=== PATIENT | female | born 1935 | race Caucasian/White ===

== ENCOUNTER 2017-05-21 06:12 | Day surgery (SDC) | payer MEDICARE ==
[2017-05-19 13:46] VITALS: BMI 29.2
--- NOTE | 2017-05-20 19:46 | P.GSHP ---
History of Present Illness H&P Date: 05/21/17 CHIEF COMPLAINT: Colon screen HISTORY OF PRESENT ILLNESS: The patient is a 81-year-old female who presents for colon screen. She has history of polyps. Lower endoscopy was offered for further evaluation and management. PAST MEDICAL HISTORY: Please see list. PAST SURGICAL HISTORY: Please see list. MEDICATIONS: Please see list. ALLERGIES: Please see list. SOCIAL HISTORY: No illicit drug use FAMILY HISTORY: No reports of Crohn disease or ulcerative colitis. REVIEW OF ORGAN SYSTEMS: CONSTITUTIONAL: No reports of fevers or chills. PHYSICAL EXAM: VITAL SIGNS: Stable GENERAL: Well-developed pleasant in no acute distress. HEENT: No scleral icterus. Extraocular movements grossly intact. Moist buccal mucosa. NECK: Supple without lymphadenopathy. CHEST: Unlabored respirations. Equal bilateral excursions. CARDIOVASCULAR: Regular rate and rhythm. Distal 2+ pulses. ABDOMEN: Soft, nontender, nondistended. MUSCULOSKELETAL: No clubbing, cyanosis, or edema. ASSESSMENT: 1. Colon screen. PLAN: 1. Recommend proceeding with a lower endoscopy Past Medical History Past Medical History: CVA/TIA, Dementia, GERD/Reflux, Hyperlipidemia, Hypertension, Memory Impairment Additional Past Medical History / Comment(s): Alzheimer's, large hiatal hernia, splenic aortic aneurysm History of Any Multi-Drug Resistant Organisms: None Reported Past Surgical History: Hernia Repair, Orthopedic Surgery Additional Past Surgical History / Comment(s): ganglion cysts removed, fx. right wrist repair, splenectomy Past Anesthesia/Blood Transfusion Reactions: Previous Problems w/ Anesthesia Additional Past Anesthesia/Blood Transfusion Reaction / Comment(s): difficulty waking up Smoking Status: Never smoker - Past Family History Mother Family Medical History: No Reported History Medications and Allergies Home Medications Medication Instructions Recorded Confirmed Type Aspirin 81 mg PO DAILY 08/17/14 05/19/17 History Atorvastatin [Lipitor] 40 mg PO HS 08/17/14 05/19/17 History Donepezil [Aricept] 5 mg PO HS 08/17/14 05/19/17 History Hydrochlorothiazide [Hydrodiuril] 25 mg PO DAILY 08/17/14 05/19/17 History Omeprazole [PriLOSEC] 20 mg PO AC-BRKFST 08/17/14 05/19/17 History Potassium Chloride [Klor-Con 10] 40 meq PO DAILY 08/17/14 05/19/17 History Melatonin 3 mg PO HS 09/11/14 05/19/17 History HYDROcodone/APAP 7.5-325MG [Roulette 1 each PO Q4H PRN #60 tab 09/19/14 05/19/17 Rx 7.5] Cholecalciferol [Vitamin D3] 1,000 unit PO DAILY 05/19/17 05/19/17 History Allergies Allergy/AdvReac Type Severity Reaction Status Date / Time No Known Allergies Allergy Verified 05/19/17 13:23
[~2017-05-21 06:12] MED LIST: LACTATED RINGERS 1,000 ML IV SCH; LIDOCAINE 1% 20 ML VIAL (10MG/ML) FOR IV START INTRADERMA PRN
[2017-05-21 06:47] VITALS: TEMP 98.3
[2017-05-21] MEDS ORDERED: LIDOCAINE 1% INJ 10MG/ML (20 ML MDV) ONE (07:10)
[2017-05-21] MEDS ORDERED: PROPOFOL 10 MG/ML 20 ML VIAL IV ONE (07:10)
--- NOTE | 2017-05-21 07:14 | P.HPADDEND ---
H&P Addendum H&P Addendum Date: 05/21/17 Patient reports rectal bleeding of recent.
--- NOTE | 2017-05-21 07:29 | P.PCN ---
Date of Procedure: 05/21/17 Description of Procedure: PREOPERATIVE DIAGNOSIS: Personal history of colon polyps. Rectal bleeding. POSTOPERATIVE DIAGNOSIS: Personal history of colon polyps. Rectal bleeding. External hemorrhoids. OPERATION: Colonoscopy to the sigmoid colon. SURGEON: Andie Pritchard MD. ANESTHESIA: MAC. INDICATIONS: The patient is a 81-year-old female who presents with rectal bleeding. Her last colonoscopy was more than 5 years ago. Benefits and risks were described and informed consent was obtained. DESCRIPTION OF PROCEDURE: The patient had undergone Gatorade, MiraLAX and Dulcolax prep. She had been brought into the operating room and laid in the left lateral decubitus position. After adequate intravenous sedation, the rectum was examined with 2% lidocaine jelly. External hemorrhoids were encountered. The rectal tone was loose. No lesions were palpated in the rectal vault. An Olympus colonoscope was advanced along the rectum to a very tortuous sigmoid colon. The scope was then exchanged for another colonoscope. Despite multiple maneuvers, the sigmoid colon had severe tortuosity preventing further advancement of scope. The scope was passed to 30 cm from the anal verge. No evidence of polyps were identified. As the patient posed high risk for perforation with persistence of the procedure, the procedure was discontinued. The colon was desufflated. The patient had tolerated the procedure well. Withdrawal time was over 6 minutes. FINDINGS: Tortuous sigmoid colon with stricture preventing further advancement of the scope. External prolapsed hemorrhoids with recent inflammation. Scope advanced to sigmoid colon at 30 cm. No arteriovenous malformations. No adenomatous polyps. No focal colitis. RECOMMENDATIONS: Completion of colonoscopy evaluation with barium enema.
[2017-05-21] MEDS ORDERED: IV FLUID CONTINUATION 1,000 ML IV ONE (07:36)
[2017-05-21] MEDS ORDERED: LACTATED RINGERS 1,000 ML IV ONE (07:36)
[2017-05-21 08:27] VITALS: RESP 15
[2017-05-21 08:44] VITALS: BP 177/90; PULSE 80
--- NOTE | 2017-05-21 11:08 | FL ---
EXAMINATION TYPE: FL barium enema DATE OF EXAM: 05/21/2017 COMPARISON: CT abdomen pelvis dated 08/11/2014 HISTORY: Incomplete colonoscopy. Failed colonoscopy due to tortuous sigmoid colon. Pt hx rectal bleed ing, hemorrhoids and polyps. TECHNIQUE: A single contrast barium enema study is performed. 2 min 9 sec fluoro. 40 images saved. FINDINGS: Scalping Machine Operator view of the abdomen shows overall non-obstructive bowel gas pattern. 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 No evidence of any mass or polyp, obstructing or constricting lesion throughout the colon. Sigmoid an d descending colonic diverticulosis are seen. Appendix was filled and appeared normal. The terminal ileum was nonvisualized due to overlapping bow el despite multiple positions and paddle usage. IMPRESSION: 1. No evidence of obstructing mass. Sigmoid and descending colonic diverticulosis is incidentally not ed. 2. 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
== END 2017-05-21 09:05 | disposition home or self-care (01) ==
LOC: ORWHC2ENDO 06:12
PROVIDERS: ATTEND Surgery Plastic and Reconstructive Surgery
DX: K57.33 Diverticulitis of large intestine without perforation or abscess with bleeding (principal); K64.4 Residual hemorrhoidal skin tags; K21.9 Gastro-esophageal reflux disease without esophagitis; I10 Essential (primary) hypertension; G30.9 Alzheimer's disease, unspecified; F02.80 Dementia in other diseases classified elsewhere, unspecified severity, without behavioral disturbance, psychotic disturbance, mood disturbance, and anxiety; E78.5 Hyperlipidemia, unspecified; Z86.010 Personal history of colon polyps; Z86.73 Personal history of transient ischemic attack (TIA), and cerebral infarction without residual deficits; Z79.82 Long term (current) use of aspirin; Z79.891 Long term (current) use of opiate analgesic; Z79.899 Other long term (current) drug therapy; Z90.81 Acquired absence of spleen
CPT/HCPCS: 74270; 45330; J2001; J2704

== ENCOUNTER → 2017-07-02 | Outpatient (CLI) | payer MEDICARE ==
--- NOTE | 2017-07-02 14:13 | CT ---
EXAMINATION TYPE: CT angio abdomen pelvis DATE OF EXAM: 07/02/2017 HISTORY: Splenic aneurysm CT DLP: 346.5mGycm Automated Exposure Control for Dose Reduction was Utilized. CONTRAST: CT scan of the abdomen and pelvis is performed with IV Contrast, patient injected with 80 mL of Isovu e 370. COMPARISON: 08/11/2014 FINDINGS: LUNG BASES: No significant abnormality is appreciated. LIVER/GB: No significant abnormality is appreciated. PANCREAS: No significant abnormality is seen. SPLEEN: Splenectomy changes with apparent thrombosis of the splenic artery and dense atherosclerotic changes. There are 2 splenic artery aneurysms identified superior thrombosed the largest measuring 1. 7 cm. ADRENALS: No significant abnormality is seen. KIDNEYS: No hydronephrosis or nephrolithiasis. Along the lateral margin of the left kidney there is a indeterminate 7 mm left renal lesion. BOWEL: Large hiatal hernia noted. Diverticulosis of the colon seen. Atherosclerotic change of the vas culature. Aorta of normal caliber. Extensive vascular atherosclerotic change of the splenic artery.. LYMPH NODES: No greater than 1cm abdominal or pelvic lymph nodes are appreciated. OSSEOUS STRUCTURES: Hypertrophic and degenerative changes spine seen with a grade 1 anterolisthesis L 4 on L5. Disc bulging contributes to canal stenosis. Severe facet arthropathy.. OTHER: No significant additional abnormality is seen. IMPRESSION: 1. 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 2. Large hiatal hernia. 3. Indeterminate left renal lesion correlate with ultrasound.
== END | disposition home or self-care (01) ==
LOC: RADCTMAIN 11:16
PROVIDERS: ATTEND Surgery Vascular Surgery
DX: I72.8 Aneurysm of other specified arteries (principal); K44.9 Diaphragmatic hernia without obstruction or gangrene; N28.9 Disorder of kidney and ureter, unspecified; Z90.81 Acquired absence of spleen
CPT/HCPCS: 74174; 96360; 96361; Q9967

== ENCOUNTER → 2017-09-14 | Outpatient (CLI) | payer MEDICARE ==
--- NOTE | 2017-09-14 14:56 | US ---
EXAMINATION TYPE: US gallbladder DATE OF EXAM: 09/14/2017 COMPARISON: None CLINICAL HISTORY: 82-year-old female right upper quadrant pain, K81.9 Cholecystitis. TECHNIQUE: Multiple sonographic images of the right upper quadrant are obtained. FINDINGS: EXAM MEASUREMENTS: Liver Length: 13.0 cm Gallbladder Wall: 0.1 cm CBD: 0.5 cm Right Kidney: 9.8 X 4.5 X 4.2 cm Pancreas: Obscured by bowel gas Liver: There is very hypoechoic appearance to the liver. Some relatively echogenic areas measuring 3 cm and 2.5 cm are noted along the gallbladder fossa. Gallbladder: wnl Evidence for sonographic Cunningham's sign: No CBD: wnl Right Kidney: No hydronephrosis IMPRESSION: 1. Very hypoechoic appearance to the liver. Correlate for possible hepatitis. 2. A couple vague echogenic areas measuring up to 3 cm centrally in the liver could represent areas o f relatively normal parenchyma or fatty infiltration. 3 month follow-up recommended.
--- NOTE | 2017-09-14 15:55 | NM ---
EXAMINATION TYPE: NM hepatobiliary w EF DATE OF EXAM: 09/14/2017 COMPARISON: Ultrasound same day HISTORY: 82-year-old female with pain, evaluate for cholecystitis TECHNIQUE: After the intravenous administration of 5.1 mCi Tc 99m Mebrofenin hepatobiliary scintigrap hy is performed. Immediate images post injection. FINDINGS: There is satisfactory initial accumulation of tracer by the liver. The gallbladder is visualized wit hin 22 minutes. The small bowel activity is noted within 54 minutes. At one hour 8 ounces of oral e nsure plus is given to mimic CCK and gallbladder ejection fraction is calculated at 50 %, in the norm al range. Therefore there is no scintigraphic evidence of cystic or common bile duct obstruction to suggest acute cholecystitis or gallbladder dyskinesia. IMPRESSION: Exam is within normal limits.
== END | disposition home or self-care (01) ==
LOC: RADUSMAIN 12:17
PROVIDERS: ATTEND Surgery Plastic and Reconstructive Surgery
DX: R93.2 Abnormal findings on diagnostic imaging of liver and biliary tract (principal)
CPT/HCPCS: 76705; 78226; A9537

== ENCOUNTER 2017-10-02 11:51 | Day surgery (SDC) | payer MEDICARE ==
[2017-09-30 11:36] VITALS: BMI 30.1
--- NOTE | 2017-10-02 07:30 | P.GSHP ---
History of Present Illness H&P Date: 10/02/17 CHIEF COMPLAINT: GERD HISTORY OF PRESENT ILLNESS: The patient is a 82-year-old male who presents reports gastroesophageal reflux disease. Upper endoscopy was offered for further evaluation and management. PAST MEDICAL HISTORY: Please see list. PAST SURGICAL HISTORY: Please see list. MEDICATIONS: Please see list. ALLERGIES: Please see list. SOCIAL HISTORY: No illicit drug use FAMILY HISTORY: No reports of Crohn disease or ulcerative colitis. REVIEW OF ORGAN SYSTEMS: CONSTITUTIONAL: No reports of fevers or chills. GI: Denies any blood in stools or constipation. PHYSICAL EXAM: VITAL SIGNS: Stable GENERAL: Well-developed and pleasant in no acute distress. HEENT: No scleral icterus. Extraocular movements grossly intact. Moist buccal mucosa. NECK: Supple without lymphadenopathy. CHEST: Unlabored respirations. Equal bilateral excursions. CARDIOVASCULAR: Regular rate and rhythm. Distal 2+ pulses. ABDOMEN: Soft, nondistended. MUSCULOSKELETAL: No clubbing, cyanosis, or edema. ASSESSMENT: 1. Gastroesophageal reflux disease PLAN: 1. Recommend proceeding with an upper endoscopy Past Medical History Past Medical History: Dementia, GERD/Reflux, Hyperlipidemia, Hypertension, Memory Impairment Additional Past Medical History / Comment(s): Alzheimer's, large hiatal hernia, splenic aortic aneurysm, diverticulitis, frequent diarrhea History of Any Multi-Drug Resistant Organisms: None Reported Past Surgical History: Hernia Repair, Orthopedic Surgery Additional Past Surgical History / Comment(s): ganglion cysts removed, fx. right wrist repair, splenectomy Past Anesthesia/Blood Transfusion Reactions: Previous Problems w/ Anesthesia Additional Past Anesthesia/Blood Transfusion Reaction / Comment(s): difficulty waking up Smoking Status: Never smoker - Past Family History Mother Family Medical History: No Reported History Medications and Allergies Home Medications Medication Instructions Recorded Confirmed Type Aspirin 81 mg PO DAILY 08/17/14 09/30/17 History Atorvastatin [Lipitor] 40 mg PO HS 08/17/14 09/30/17 History Hydrochlorothiazide [Hydrodiuril] 25 mg PO DAILY 08/17/14 09/30/17 History Omeprazole [PriLOSEC] 20 mg PO AC-BRKFST 08/17/14 09/30/17 History Potassium Chloride [Klor-Con 10] 40 meq PO DAILY 08/17/14 09/30/17 History Cholecalciferol [Vitamin D3] 1,000 unit PO DAILY 05/19/17 09/30/17 History Mirtazapine [Remeron] 1 tab PO HS 07/02/17 09/30/17 History Donepezil [Aricept] 10 mg PO HS 09/30/17 09/30/17 History Loperamide [Imodium] 2 mg PO QID PRN 09/30/17 09/30/17 History Allergies Allergy/AdvReac Type Severity Reaction Status Date / Time No Known Allergies Allergy Verified 09/30/17 11:29
[~2017-10-02 11:51] MED LIST changes: -LIDOCAINE 1% 20 ML VIAL (10MG/ML) FOR IV START INTRADERMA PRN
[2017-10-02 12:24] VITALS: RESP 18; TEMP 98.3
[2017-10-02] MEDS ORDERED: LIDOCAINE 1% 20 ML VIAL (10MG/ML) FOR IV START INTRADERMA ONE (12:34)
[2017-10-02] MEDS ORDERED: PROPOFOL 10 MG/ML 20 ML VIAL IV ONE (13:13)
[2017-10-02] MEDS ORDERED: LIDOCAINE 1% INJ 10MG/ML (20 ML MDV) ONE (13:13)
--- NOTE | 2017-10-02 13:28 | P.PCN ---
Date of Procedure: 10/02/17 Description of Procedure: PREOPERATIVE DIAGNOSIS: Gastroesophageal reflux disease. POSTOPERATIVE DIAGNOSIS: Gastroesophageal reflux disease. Diaphragmatic hiatal hernia without obstruction. OPERATION: Esophagogastroduodenoscopy with biopsies along antrum. SURGEON: Andie Pritchard MD ANESTHESIA: MAC. INDICATIONS: The patient is a 82-year-old female who presents with a history of reflux disease. Benefits and risks of the procedure were described. Informed consent was obtained. DESCRIPTION: The patient was brought into the endoscopy suite and laid in the left lateral decubitus position. An Olympus gastroscope was passed along the posterior oropharynx down to the distal esophagus where the squamocolumnar junction was encountered at 32 cm from the incisors. The stomach was entered and no bile reflux was found. Additional findings are listed below. Biopsies with cold forceps were obtained of the antrum. The first through third portion of the duodenum was examined and unremarkable. Retroflexion of the scope confirmed Hill grade 4 lower esophageal valve. The squamocolumnar junction demonstrated early and acute LA grade A erosive esophagitis. The stomach was desufflated. The patient tolerated the procedure well. FINDINGS: Squamocolumnar junction 32 cm from the incisors. Diaphragmatic hiatus at 36 cm. Hiatal hernia 4 cm. Hill grade 4 lower esophageal valve. LA grade A erosive esophagitis. No active duodenitis. Mild gastritis RECOMMENDATIONS: Upper endoscopy as needed. Will benefit from antireflux surgical procedure Plan - Discharge Summary New Discharge Prescriptions: No Action Hydrochlorothiazide [Hydrodiuril] 25 mg PO DAILY Atorvastatin [Lipitor] 40 mg PO HS Aspirin 81 mg PO DAILY Omeprazole [PriLOSEC] 20 mg PO AC-BRKFST Potassium Chloride [Klor-Con 10] 40 meq PO DAILY Cholecalciferol [Vitamin D3] 1,000 unit PO DAILY Mirtazapine [Remeron] 1 tab PO HS Donepezil [Aricept] 10 mg PO HS Loperamide [Imodium] 2 mg PO QID PRN PRN Reason: Diarrhea Discharge Medication List Aspirin 81 mg PO DAILY 08/17/14 [History] Atorvastatin [Lipitor] 40 mg PO HS 08/17/14 [History] Hydrochlorothiazide [Hydrodiuril] 25 mg PO DAILY 08/17/14 [History] Omeprazole [PriLOSEC] 20 mg PO AC-BRKFST 08/17/14 [History] Potassium Chloride [Klor-Con 10] 40 meq PO DAILY 08/17/14 [History] Cholecalciferol [Vitamin D3] 1,000 unit PO DAILY 05/19/17 [History] Mirtazapine [Remeron] 1 tab PO HS 07/02/17 [History] Donepezil [Aricept] 10 mg PO HS 09/30/17 [History] Loperamide [Imodium] 2 mg PO QID PRN 09/30/17 [History]
[2017-10-02 13:49] VITALS: BP 161/92; PULSE 62
== END 2017-10-02 14:08 | disposition home or self-care (01) ==
LOC: ORWHC2ENDO 11:51
PROVIDERS: ATTEND Surgery Plastic and Reconstructive Surgery
DX: K29.50 Unspecified chronic gastritis without bleeding (principal); K22.10 Ulcer of esophagus without bleeding; K44.9 Diaphragmatic hernia without obstruction or gangrene; K21.9 Gastro-esophageal reflux disease without esophagitis; E78.5 Hyperlipidemia, unspecified; I10 Essential (primary) hypertension; G30.9 Alzheimer's disease, unspecified; F02.80 Dementia in other diseases classified elsewhere, unspecified severity, without behavioral disturbance, psychotic disturbance, mood disturbance, and anxiety; Z79.82 Long term (current) use of aspirin; Z79.899 Other long term (current) drug therapy
CPT/HCPCS: 88305; 43239; J2001; J2704

== ENCOUNTER → 2018-10-21 | Outpatient (CLI) | payer MEDICARE ==
--- NOTE | 2018-10-22 10:26 | ECHOF ---
Referral Reason:R01.1 Cardiac murmor,unspecified MEASUREMENTS -------- HEIGHT: 160.0 cm WEIGHT: 79.4 kg BP: 151/85 RVIDd: 2.8 cm (< 3.3) IVSd: 1.2 cm (0.6 - 1.1) LVIDd: 3.6 cm (3.9 - 5.3) LVPWd: 1.1 cm (0.6 - 1.1) IVSs: 1.6 cm LVIDs: 2.1 cm LVPWs: 1.4 cm LA Diam: 2.5 cm (2.7 - 3.8) LAESV Index (A-L): 33.70 ml/m Ao Diam: 3.5 cm (2.0 - 3.7) AV Cusp: 1.5 cm (1.5 - 2.6) MV EXCURSION: 11.540 mm (> 18.000) MV EF SLOPE: 37 mm/s (70 - 150) EPSS: 0.4 cm MV E Rome: 0.85 m/s MV DecT: 374 ms MV A [place]: 1.02 m/s MV E/A Ratio: 0.83 AV maxP.37 mmHg AV meanP.78 mmHg RAP: 5.00 mmHg RVSP: 19.97 mmHg FINDINGS -------- Sinus rhythm. This was a technically good study. The left ventricular size is normal. There is borderline concentric left ventricular hypertrophy. Overall left ventricular systolic function is normal with, an EF between 60 - 65 %. The right ventricle is normal in size. LA is midly dilated 29-33ml/m2. The right atrium is normal in size. Interatrial and interventricular septum intact. There is moderate aortic valve sclerosis. There is mild aortic stenosis present. Peak/mean gradie nt across the Aortic Valve is 36.37mmHg / 18.78mmHg. The mitral valve leaflets are mildly thickened. Mild mitral annular calcification present. There is trace to mild mitral regurgitation. Mild tricuspid regurgitation present. Right ventricular systolic pressure is normal at < 35 mmHg. Trace/mild (physiologic) pulmonic regurgitation. The aortic root size is normal. Normal inferior vena cava with normal inspiratory collapse consistent with estimated right atrial pre ssure of 5 mmHg. There is no pericardial effusion. CONCLUSIONS -------- 1. Sinus rhythm. 2. This was a technically good study. 3. The left ventricular size is normal. 4. There is borderline concentric left ventricular hypertrophy. 5. Overall left ventricular systolic function is normal with, an EF between 60 - 65 %. 6. The right ventricle is normal in size. 7. LA is midly dilated 29-33ml/m2. 8. The right atrium is normal in size. 9. Interatrial and interventricular septum intact. 10. There is moderate aortic valve sclerosis. 11. There is mild to modertae aortic stenosis present. 12. Peak/mean gradient across the Aortic Valve is 36.37mmHg / 18.78mmHg. 13. The mitral valve leaflets are mildly thickened. 14. Mild mitral annular calcification present. 15. There is trace to mild mitral regurgitation. 16. Mild tricuspid regurgitation present. 17. Right ventricular systolic pressure is normal at < 35 mmHg. 18. Trace/mild (physiologic) pulmonic regurgitation. 19. The aortic root size is normal. 20. Normal inferior vena cava with normal inspiratory collapse consistent with estimated right atrial pressure of 5 mmHg. 21. There is no pericardial effusion. [employer] SERV[employer] TECHNICIAN: Nilam Prado RDCS
== END | disposition home or self-care (01) ==
LOC: RADECHMAIN 16:17
PROVIDERS: ATTEND Family Medicine
DX: I08.1 Rheumatic disorders of both mitral and tricuspid valves (principal)
CPT/HCPCS: 93306

== ENCOUNTER 2019-05-02 16:35 | Emergency (ER) | payer MEDICARE ==
[2019-05-02] MEDS ORDERED: HYDROcodone/APAP 5-325MG 1 EACH TAB PO STA (18:47)
[2019-05-02] MEDS ORDERED: ACET/COD 300 MG/30 MG STARTER PACK 6 TAB BTL PO STA (18:47)
[2019-05-02] MEDS ORDERED: KETOROLAC 60 MG/2 ML VIAL IM STA (18:47)
--- NOTE | 2019-05-02 18:48 | XR ---
EXAMINATION TYPE: XR lumbar spine 2 or 3V DATE OF EXAM: 05/02/2019 COMPARISON: NONE HISTORY: Low back pain TECHNIQUE: 3 views FINDINGS: There is 1 cm anterior subluxation of L4 in relation L5. There is mild narrowing at L4-5 an d L5-S1 disc spaces. There is 15% depression of the superior endplate of L1 vertebra. Fractures proba tabatha old. There is extensive splenic artery calcification. Abdominal aorta is atheromatous. Sacroiliac joints are intact. IMPRESSION: Degenerative first-degree L4-5 spondylolisthesis. Degenerative disc changes. L1 compressi on fractures probably old.
--- NOTE | 2019-05-02 18:48 | ED ---
Back Pain HPI - General Chief Complaint: Back Pain/Injury Stated Complaint: low back pain/previous fall Time Seen by Provider: 05/02/19 17:48 Source: patient, family, RN notes reviewed, old records reviewed, Caregiver - History of Present Illness Initial Comments: This is a 83-year-old female here status post fall fall or a week ago patient persistent back pain. Patient is able to amply but does have difficulty injury. No neurological complaints no loss of bowel or bladder. Patient is no other fevers no injuries noted aside from the Smith ago and she has become ametropia for a week. Patient's pain has been persistent, and is also in pain today. Pain was just worse than normal today. Patient otherwise has no other complaints MD Complaint: back pain, back injury, fall -: week(s) Similar Symptoms Previously: Yes Place: home Radiation: buttocks Severity: severe Severity scale (1-10): 8 Quality: sharp, stabbing Consistency: intermittent Improves With: immobilization Worsens With: movement, walking Context: fall Associated Symptoms: denies other symptoms - Related Data Home Medications Medication Instructions Recorded Confirmed Aspirin 81 mg PO DAILY 08/17/14 10/02/17 Atorvastatin [Lipitor] 40 mg PO HS 08/17/14 10/02/17 Hydrochlorothiazide [Hydrodiuril] 25 mg PO DAILY 08/17/14 10/02/17 Omeprazole [PriLOSEC] 20 mg PO AC-BRKFST 08/17/14 10/02/17 Potassium Chloride [Klor-Con 10] 40 meq PO DAILY 08/17/14 10/02/17 Cholecalciferol [Vitamin D3] 1,000 unit PO DAILY 05/19/17 10/02/17 Mirtazapine [Remeron] 1 tab PO HS 07/02/17 10/02/17 Donepezil [Aricept] 10 mg PO HS 09/30/17 10/02/17 Loperamide [Imodium] 2 mg PO QID PRN 09/30/17 10/02/17 Allergies Allergy/AdvReac Type Severity Reaction Status Date / Time No Known Allergies Allergy Verified 10/02/17 12:07 Review of Systems ROS Statement: Those systems with pertinent positive or pertinent negative responses have been documented in the HPI. ROS Other: All systems not noted in ROS Statement are negative. Past Medical History Past Medical History: CVA/TIA, Dementia, GERD/Reflux, Hyperlipidemia, Hypertension, Memory Impairment Additional Past Medical History / Comment(s): Alzheimer's, large hiatal hernia, splenic aortic aneurysm History of Any Multi-Drug Resistant Organisms: None Reported Past Surgical History: Hernia Repair, Orthopedic Surgery Additional Past Surgical History / Comment(s): ganglion cysts removed, fx. right wrist repair, splenectomy Past Anesthesia/Blood Transfusion Reactions: Previous Problems w/ Anesthesia Additional Past Anesthesia/Blood Transfusion Reaction / Comment(s): difficulty waking up Past Psychological History: Anxiety Smoking Status: Never smoker - Past Family History Mother Family Medical History: No Reported History General Exam - General Exam Comments Initial Comments: No focal neurological findings on exam General appearance: alert, in no apparent distress Head exam: Present: atraumatic, normocephalic, normal inspection Eye exam: Present: normal appearance, PERRL, EOMI. Absent: scleral icterus, conjunctival injection, periorbital swelling ENT exam: Present: normal exam, mucous membranes moist Neck exam: Present: normal inspection. Absent: tenderness, meningismus, lymphadenopathy Respiratory exam: Present: normal lung sounds bilaterally. Absent: respiratory distress, wheezes, rales, rhonchi, stridor Cardiovascular Exam: Present: regular rate, normal rhythm, normal heart sounds. Absent: systolic murmur, diastolic murmur, rubs, gallop, clicks GI/Abdominal exam: Present: soft, normal bowel sounds. Absent: distended, tenderness, guarding, rebound, rigid Extremities exam: Present: normal inspection, full ROM, normal capillary refill. Absent: tenderness, pedal edema, joint swelling, calf tenderness Back exam: Present: normal inspection Neurological exam: Present: alert, oriented X3, CN II-XII intact Psychiatric exam: Present: normal affect, normal mood Skin exam: Present: warm, dry, intact, normal color. Absent: rash Course Vital Signs 05/02/19 05/02/19 17:21 19:35 Temperature 98.2 F 98.0 F Pulse Rate 76 64 Respiratory 18 16 Rate Blood Pressure 175/83 180/95 O2 Sat by Pulse 97 98 Oximetry - Reevaluation(s) Reevaluation #1: 05/02/19 20:06 Medical records reviewed Reevaluation #2: 05/02/19 20:06 Pain well-controlled patient was amateur here in the ER, informed of results questions are answered Medical Decision Making - Medical Decision Making 83 Female here status post fall given pain control follow-up with primary care for further pain management patient does have looks like old L1 compression fracture - Radiology Data Radiology results: report reviewed (CT of the abdm pelvis is focused on LS-spine does show L1 fracture old but new compared to prior CT), image reviewed Disposition Clinical Impression: Fall, Compression fracture of L1 lumbar vertebra, Mechanical back pain Disposition: HOME SELF-CARE Condition: Good Instructions (If sedation given, give patient instructions): Acute Low Back Pain (ED) Is patient prescribed a controlled substance at d/c from ED?: No Referrals: Micheal Phillips DO [Primary Care Provider] - 1-2 days
--- NOTE | 2019-05-02 19:48 | CT ---
EXAMINATION TYPE: CT abdomen pelvis wo con DATE OF EXAM: 05/02/2019 COMPARISON: 07/02/2017 HISTORY: Lumbar spine pain from frequent fall CT DLP: 551 mGycm Automated exposure control for dose reduction was used. Multiple axial sections were obtained from the diaphragm to the floor the pelvis with no contrast. Lung bases are clear. There is no pleural effusion. There is moderate hiatal hernia. Heart size is no rmal. There is coronary artery calcification. There is dense splenic artery calcification. Liver show s no focal defect. Gallbladder appears normal. Stomach has normal contour. There is no evidence of pa ncreatic mass. 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 There is 2.5 Norberto rounded density at the location of the spleen consistent with regenerative nodule. There is no adrenal mass. Kidneys have normal size. There is no hydronephrosis. Ureters are not dilat ed. Bladder distends smoothly. There is retained fecal material in the rectum. Uterus is anteverted. There are small calcified uterine fibroids. There is no inguinal hernia. There is no mesenteric edema. There is no ascites or free air. There is no bowel obstruction. Appendi x is posterior and lateral and appears normal. There is a first-degree L4-5 spondylolisthesis. There is 15% anterior wedging of L1 vertebra that is probably old. IMPRESSION: Degenerative first-degree L4-5 spondylolisthesis unchanged. There is a compression fracture of L1 kelsey t is probably old but is a new fracture compared to old CT scan. Hiatal hernia. Mild constipation.
[2019-05-02 20:52] VITALS: BP 185/105; PULSE 68; RESP 18; TEMP 98.3
== END 2019-05-02 20:55 | disposition home or self-care (01) ==
LOC: EC 16:35
DX: M48.56XA Collapsed vertebra, not elsewhere classified, lumbar region, initial encounter for fracture (principal); F02.80 Dementia in other diseases classified elsewhere, unspecified severity, without behavioral disturbance, psychotic disturbance, mood disturbance, and anxiety; G30.9 Alzheimer's disease, unspecified; E78.5 Hyperlipidemia, unspecified; F41.9 Anxiety disorder, unspecified; I10 Essential (primary) hypertension; I25.10 Atherosclerotic heart disease of native coronary artery without angina pectoris; K21.9 Gastro-esophageal reflux disease without esophagitis; Z79.82 Long term (current) use of aspirin; Z79.899 Other long term (current) drug therapy; Z86.73 Personal history of transient ischemic attack (TIA), and cerebral infarction without residual deficits; W19.XXXA Unspecified fall, initial encounter
CPT/HCPCS: 72100; 74176; 96372; 99284; J1885

== ENCOUNTER 2021-05-24 15:20 | Emergency (ER) | payer MEDICARE ==
[2021-05-24 15:50] VITALS: TEMP 97.6
[2021-05-24] MEDS ORDERED: SODIUM CHLORIDE 0.9% 500 ML 500 ML IV STA (17:27)
[2021-05-24 17:46] LABS: Basophils # (A) 0.1 k/uL (0-0.2); Basophils % (A) 1 %; Eosinophils # (A) 0.2 k/uL (0-0.7); Eosinophils % (A) 3 %; HCT 41.8 % (34.0-46.0); HGB 13.5 gm/dL (11.4-16.0); Lymphocytes # (A) 1.6 k/uL (1.0-4.8); Lymphocytes % (A) 27 %; MCH 29.1 pg (25.0-35.0); MCHC 32.4 g/dL (31.0-37.0); MCV 90.1 fL (80.0-100.0); Mean Platelet Volume 9.2; Monocytes # (A) 0.6 k/uL (0-1.0); Monocytes % (A) 9 %; Neutrophils # (A) 3.4 k/uL (1.3-7.7); Neutrophils % (A) 55 %; Platelet Count 271 k/uL (150-450); RBC 4.65 m/uL (3.80-5.40); WBC 6.1 k/uL (3.8-10.6)
[2021-05-24 17:55] LABS: Albumin 3.7 g/dL (3.5-5.0); Calcium 8.9 mg/dL (8.4-10.2); Potassium 3.8 mmol/L (3.5-5.1); Total Bilirubin 0.6 mg/dL (0.2-1.3); Total Protein 6.8 g/dL (6.3-8.2)
--- NOTE | 2021-05-24 17:59 | ED ---
General Adult HPI - General Chief complaint: Nausea/Vomiting/Diarrhea Stated complaint: Dehydration/AMS Time Seen by Provider: 05/24/21 17:12 Source: patient, family Mode of arrival: wheelchair Limitations: altered mental status - History of Present Illness Initial comments: This 85-year-old female presents emergency Department with diarrhea 2 days herbert ng with decreased appetite 2 days. Daughter and room states patient has been diagnosed with memory loss and Alzheimer's dementia years ago and states she has been living with her mother since. Daughter and room states patient experienced a few episodes of diarrhea on May 20-May 22 that has since resolved and believe that she may be dehydrated due to this. The daughter is in the room state that they believe her dementia is getting worse due to her sleeping more often recently. They also state that she has some sundowners and has recently been staying up later at night and sleeping more during the day. Daughter is in room denies any diarrhea today and patient. They do state that patient has been eating and drinking a little bit less than usual, however she has still been eating and drinking daily. Patient denies any symptoms at this time and states "I feel great." Patient denies any chest pain, shortness of breath, abdominal pain, nausea, vomiting, constipation, change in bladder, change in vision, headache, lightheadedness, dizziness - Related Data Home Medications Medication Instructions Recorded Confirmed Atorvastatin [Lipitor] 40 mg PO HS 08/17/14 05/24/21 Mirtazapine [Remeron] 15 mg PO HS 07/02/17 05/24/21 Donepezil [Aricept] 10 mg PO HS 09/30/17 05/24/21 Aspirin EC [Ecotrin Low Dose] 81 mg PO DAILY 05/24/21 05/24/21 Cholecalciferol [Vitamin D3 (25 25 mcg PO DAILY 05/24/21 05/24/21 Mcg = 1000 Iu)] Allergies Allergy/AdvReac Type Severity Reaction Status Date / Time No Known Allergies Allergy Verified 05/24/21 18:21 Review of Systems ROS Statement: Those systems with pertinent positive or pertinent negative responses have been documented in the HPI. ROS Other: All systems not noted in ROS Statement are negative. Past Medical History Past Medical History: CVA/TIA, Dementia, GERD/Reflux, Hyperlipidemia, Hypertension, Memory Impairment Additional Past Medical History / Comment(s): Alzheimer's, large hiatal hernia, splenic aortic aneurysm History of Any Multi-Drug Resistant Organisms: None Reported Past Surgical History: Hernia Repair, Orthopedic Surgery Additional Past Surgical History / Comment(s): ganglion cysts removed, fx. right wrist repair, splenectomy Past Anesthesia/Blood Transfusion Reactions: Previous Problems w/ Anesthesia Additional Past Anesthesia/Blood Transfusion Reaction / Comment(s): difficulty waking up Past Psychological History: Anxiety Past Alcohol Use History: None Reported Past Drug Use History: None Reported - Past Family History Mother Family Medical History: No Reported History General Exam Limitations: altered mental status General appearance: alert, in no apparent distress Head exam: Present: atraumatic, normocephalic, normal inspection Eye exam: Present: normal appearance, PERRL, EOMI. Absent: scleral icterus, conjunctival injection, periorbital swelling Pupils: Present: normal accommodation ENT exam: Present: normal exam, normal oropharynx, mucous membranes moist Neck exam: Present: normal inspection, full ROM. Absent: tenderness, meningi smus, lymphadenopathy Respiratory exam: Present: normal lung sounds bilaterally. Absent: respiratory distress, wheezes, rales, rhonchi, stridor Cardiovascular Exam: Present: regular rate, normal rhythm, normal heart sounds. Absent: systolic murmur, diastolic murmur, rubs, gallop, clicks GI/Abdominal exam: Present: soft, normal bowel sounds. Absent: distended, tenderness, guarding, rebound, rigid Extremities exam: Present: normal inspection, full ROM, normal capillary refill. Absent: tenderness, pedal edema, joint swelling, calf tenderness Back exam: Present: normal inspection. Absent: CVA tenderness (R), CVA tenderness (L), paraspinal tenderness, vertebral tenderness Neurological exam: Present: alert, oriented X3, CN II-XII intact Psychiatric exam: Present: normal affect, normal mood Skin exam: Present: warm, dry, intact, normal color. Absent: rash Course Vital Signs 05/24/21 05/24/21 15:46 18:30 Temperature 97.6 F Pulse Rate 70 60 Respiratory 18 16 Rate Blood Pressure 143/85 141/94 O2 Sat by Pulse 98 98 Oximetry EKG Findings - EKG Comments: EKG Findings:: EKG: Ventricular rate 61 bpm. LA interval 188. QRS duration 140. QT/QTc 467/470 Medical Decision Making - Medical Decision Making This 85-year-old female presents emergency Department with decreased appetite over the last few days along with diarrhea on 05/20-05/22 that has since resolved. Daughters in room stated they believe that the mother's dehydrated. He states she does have sundowners and has been sleeping more during the day and has been up more at night. Labs with white blood cell 6.1, hemoglobin 13.5, hematocrit 41.8, chemistry BUN 22, creatinine 0.96, glucose 104. Urine cloudy with large leukocyte esterase, white blood cells 9, squamous epithelial cells 8- urine sent for culture. Patient was given 1 L of fluids and was requesting food and water. Chest x-ray impression: No acute cardiopulmonary process or disease. X-ray KUB impression: Nonspecific bowel gas pattern without radiographic evidence for acute process. Daughters are requesting to take patient home. Daughter states she does live with her mother and father will not be alone. She did eat a sandwich and a glass water while here in the emergency department. Family in room states patient does have a history of diverticulitis but experien lamar left lower quadrant pain with these episodes. Daughters in room did refuse computed tomography scan of abdomen/pelvis and stated they would return if she gets any fever or complaints of abdominal pain or if her diarrhea returns. Prior to discharge patient does not have any symptoms. Strict return precautions were discussed. Daughters in room verbally agreed to plan. Patient sounds stable condition. Case discussed in detail my attending, Dr. Santiago. - Lab Data Result diagrams: 05/24/21 17:38 05/24/21 17:38 Lab Results 05/24/21 05/24/21 05/24/21 Range/Units 17:38 17:38 17:38 WBC 6.1 (3.8-10.6) k/uL RBC 4.65 (3.80-5.40) m/uL Hgb 13.5 (11.4-16.0) gm/dL Hct 41.8 (34.0-46.0) % MCV 90.1 (80.0-100.0) fL MCH 29.1 (25.0-35.0) pg MCHC 32.4 (31.0-37.0) g/dL RDW 13.0 (11.5-15.5) % Plt Count 271 (150-450) k/uL MPV 9.2 Neutrophils % 55 % Lymphocytes % 27 % Monocytes % 9 % Eosinophils % 3 % Basophils % 1 % Neutrophils # 3.4 (1.3-7.7) k/uL Lymphocytes # 1.6 (1.0-4.8) k/uL Monocytes # 0.6 (0-1.0) k/uL Eosinophils # 0.2 (0-0.7) k/uL Basophils # 0.1 (0-0.2) k/uL Sodium 139 (137-145) mmol/L Potassium 3.8 (3.5-5.1) mmol/L Chloride 107 (98-107) mmol/L Carbon Dioxide 24 (22-30) mmol/L Anion Gap 8 mmol/L BUN 22 H (7-17) mg/dL Creatinine 0.96 (0.52-1.04) mg/dL Est GFR (CKD-EPI)AfAm 63 (>60 ml/min/1.73 sqM) Est GFR (CKD-EPI)NonAf 55 (>60 ml/min/1.73 sqM) Glucose 104 H (74-99) mg/dL Calcium 8.9 (8.4-10.2) mg/dL Total Bilirubin 0.6 (0.2-1.3) mg/dL AST 28 (14-36) U/L ALT 19 (4-34) U/L Alkaline Phosphatase 82 (38-126) U/L Total Protein 6.8 (6.3-8.2) g/dL Albumin 3.7 (3.5-5.0) g/dL Lipase 181 (23-300) U/L Urine Color Yellow Urine Appearance Cloudy H (Clear) Urine pH 5.5 (5.0-8.0) Ur Specific [place] 1.035 (1.001-1.035) Urine Protein Trace H (Negative) Urine Glucose (UA) 1+ H (Negative) Urine Ketones Negative (Negative) Urine Blood Negative (Negative) Urine Nitrite Negative (Negative) Urine Bilirubin Negative (Negative) Urine Urobilinogen <2.0 (<2.0) mg/dL Ur Leukocyte Esterase Large H (Negative) Urine RBC 3 (0-5) /hpf Urine WBC 9 H (0-5) /hpf Ur Squamous Epith Cells 8 H (0-4) /hpf Calcium Oxalate Crystal Few H (None) /hpf Amorphous Sediment Rare H (None) /hpf Urine Mucus Many H (None) /hpf - Radiology Data Radiology results: report reviewed, image reviewed Disposition Clinical Impression: Dehydration Disposition: HOME SELF-CARE Condition: Stable Instructions (If sedation given, give patient instructions): Dehydration (ED) Additional Instructions: Follow-up with your primary care provider on Thursday. Return to the emergency department with any new, worsening, or concerning symptoms. Is patient prescribed a controlled substance at d/c from ED?: No Referrals: Micheal Phillips DO [Primary Care Provider] - 1-2 days Time of Disposition: 20:03
[2021-05-24 18:34] VITALS: BP 141/94; PULSE 60; RESP 16
--- NOTE | 2021-05-24 18:46 | XR ---
EXAMINATION TYPE: XR chest 2V DATE OF EXAM: 05/24/2021 5:55 PM COMPARISON:Chest radiographs from 09/18/2014 TECHNIQUE: XR chest 2V Frontal and lateral views of the chest. CLINICAL INDICATION:Female, 85 years old with history of pain; FINDINGS: Lungs/Pleura: There is no evidence of pleural effusion, focal consolidation, or pneumothorax. Pulmonary vascularity: Unremarkable. Heart/mediastinum: Cardiomediastinal silhouette is prominent in size. Musculoskeletal: No acute osseous pathology. IMPRESSION: No acute cardiopulmonary disease/process.
--- NOTE | 2021-05-24 18:48 | XR ---
EXAMINATION TYPE: XR KUB DATE OF EXAM: 05/24/2021 5:55 PM INDICATION: Patient age:Female; 85 years old; Reason for study: pain; COMPARISON: CT abdomen pelvis 05/02/2019. TECHNIQUE: One radiographic view of the abdomen was obtained. FINDINGS: The bowel gas pattern is nonspecific without dilated loops of small or large bowel. There i s no evidence for organomegaly or pneumoperitoneum. The osseous structures are intact. Calcified ve ssels in the left upper quadrant as seen on prior CT. Fecal material and gas are demonstrated through out the colon and rectum. Multilevel disc degeneration changes throughout the spine. IMPRESSION: Nonspecific bowel gas pattern without radiographic evidence for acute process.
[2021-05-24 19:51] LABS: Amorphous Sediment,Urine Rare /hpf; Appearance,Urine Cloudy (Clear); Bilirubin,Urine Negative (Negative); Blood,Urine Negative (Negative); Calcium Oxalate Crystals,Urine Few /hpf; Color,Urine Yellow; Glucose,Urine (UA) 1+ (Negative); Ketones,Urine Negative (Negative); Leukocyte Esterase,Urine Large (Negative); Mucus,Urine Many /hpf; Nitrite,Urine Negative (Negative); PH, Urine 5.5 (5.0-8.0); Protein,Urine Trace (Negative); RBC,Urine 3 /hpf (0-5); Specific Gravity,Urine 1.035 (1.001-1.035); Squamous Epithelial Cell,Urine 8 /hpf (0-4); Urobilinogen,Urine <2.0 mg/dL (<2.0); WBC,Urine 9 /hpf (0-5)
== END 2021-05-24 20:28 | disposition home or self-care (01) ==
LOC: EC 15:20
DX: E86.0 Dehydration (principal); E78.5 Hyperlipidemia, unspecified; I10 Essential (primary) hypertension; Z86.73 Personal history of transient ischemic attack (TIA), and cerebral infarction without residual deficits; Z79.899 Other long term (current) drug therapy; Z79.82 Long term (current) use of aspirin
CPT/HCPCS: 36415; 71046; 74018; 80053; 81001; 83690; 85025; 93005; 99284

== ENCOUNTER 2021-08-25 09:11 | Emergency (ER) | payer MEDICARE ==
[2021-08-25 09:18] VITALS: TEMP 97.9
[2021-08-25] MEDS ORDERED: SODIUM CHLORIDE 0.9% 500 ML 500 ML IV ONE (09:42)
--- NOTE | 2021-08-25 09:49 | ED ---
Altered Mental Status HPI - General Chief Complaint: Altered Mental Status Stated Complaint: altered mental status Time Seen by Provider: 08/25/21 09:26 Source: patient, family, EMS, RN notes reviewed Mode of arrival: EMS Limitations: no limitations - History of Present Illness Initial Comments: This is an 86-year-old female presents emergency department with family for concerns of confusion. Patient reportedly was sleeping heard her making some noises in her room the stated that he went in to talk to her and she had some garbled speech and was not responding though was not really awake. EMS arrived and family states they yelled her name and which she appeared to wake up his had resolved they felt that she seemed a week is concerned that she may have had some strokelike symptoms. Patient has no complaints, states that she is at her baseline. Patient does have underlying dementia, multiple coronary disease. Patient has no complaints and family again states that she is at her baseline. - Related Data Home Medications Medication Instructions Recorded Confirmed Atorvastatin [Lipitor] 40 mg PO HS 08/17/14 05/24/21 Mirtazapine [Remeron] 15 mg PO HS 07/02/17 05/24/21 Donepezil [Aricept] 10 mg PO HS 09/30/17 05/24/21 Aspirin EC [Ecotrin Low Dose] 81 mg PO DAILY 05/24/21 05/24/21 Cholecalciferol [Vitamin D3 (25 25 mcg PO DAILY 05/24/21 05/24/21 Mcg = 1000 Iu)] Previous Rx's Medication Instructions Recorded Nitrofurantoin Monohyd/M-Cryst 100 mg PO Q12HR #14 cap 08/25/21 [Macrobid] Allergies Allergy/AdvReac Type Severity Reaction Status Date / Time No Known Allergies Allergy Verified 05/24/21 18:21 Review of Systems ROS Statement: Those systems with pertinent positive or pertinent negative responses have been documented in the HPI. ROS Other: All systems not noted in ROS Statement are negative. Past Medical History Past Medical History: CVA/TIA, Dementia, GERD/Reflux, Hyperlipidemia, Hypertension, Memory Impairment Additional Past Medical History / Comment(s): Alzheimer's, large hiatal hernia, splenic aortic aneurysm History of Any Multi-Drug Resistant Organisms: None Reported Past Surgical History: Hernia Repair, Orthopedic Surgery Additional Past Surgical History / Comment(s): ganglion cysts removed, fx. right wrist repair, splenectomy Past Anesthesia/Blood Transfusion Reactions: Previous Problems w/ Anesthesia Additional Past Anesthesia/Blood Transfusion Reaction / Comment(s): difficulty waking up Past Psychological History: Anxiety Smoking Status: Never smoker Past Alcohol Use History: None Reported Past Drug Use History: None Reported - Past Family History Mother Family Medical History: No Reported History General Exam Limitations: no limitations General appearance: alert, in no apparent distress Head exam: Present: atraumatic, normocephalic, normal inspection Eye exam: Present: normal appearance, PERRL, EOMI. Absent: scleral icterus, conjunctival injection, periorbital swelling ENT exam: Present: normal exam, normal oropharynx, mucous membranes moist Neck exam: Present: normal inspection, full ROM. Absent: tenderness, meningismus, lymphadenopathy Respiratory exam: Present: normal lung sounds bilaterally. Absent: respiratory distress, wheezes, rales, rhonchi, stridor Cardiovascular Exam: Present: regular rate, normal rhythm, normal heart sounds. Absent: systolic murmur, diastolic murmur, rubs, gallop, clicks Extremities exam: Present: normal inspection, full ROM, normal capillary refill, other (Upper and lower extremity strength equal bilaterally neurovascular intact). Absent: tenderness, pedal edema, joint swelling, calf tenderness Neurological exam: Present: alert, CN II-XII intact, reflexes normal, other (NIH 0 GCS 15). Absent: motor sensory deficit Skin exam: Present: warm, dry, intact, normal color. Absent: rash Course Vital Signs 08/25/21 08/25/21 09:14 09:18 Temperature 97.9 F Pulse Rate 64 Respiratory 16 Rate Blood Pressure 189/105 189/105 O2 Sat by Pulse 93 L Oximetry Medical Decision Making - Medical Decision Making patient had full workup including labs, urinalysis, CT with evidence of urinary tract infection. Patient has no strokelike symptoms. Patient is at her normal baseline with NIH of 0, family states that she has no current symptoms. Patient does have a small bout of confusion was likely patient was still sleeping as patient reports herself. Patient will be treated for urinary tract infection we discussed return parameters daughter room agrees that the patient can be discharged and will return for any worsening change in symptoms - Lab Data Result diagrams: 08/25/21 10:08 08/25/21 10:08 Lab Results 08/25/21 08/25/21 08/25/21 Range/Units 10:08 10:08 10:08 WBC 7.4 (3.8-10.6) k/uL RBC 4.53 (3.80-5.40) m/uL Hgb 13.5 (11.4-16.0) gm/dL Hct 41.1 (34.0-46.0) % MCV 90.9 (80.0-100.0) fL MCH 29.9 (25.0-35.0) pg MCHC 32.9 (31.0-37.0) g/dL RDW 13.5 (11.5-15.5) % Plt Count 265 (150-450) k/uL MPV 9.2 Neutrophils % 60 % Lymphocytes % 23 % Monocytes % 8 % Eosinophils % 4 % Basophils % 2 % Neutrophils # 4.4 (1.3-7.7) k/uL Lymphocytes # 1.7 (1.0-4.8) k/uL Monocytes # 0.6 (0-1.0) k/uL Eosinophils # 0.3 (0-0.7) k/uL Basophils # 0.1 (0-0.2) k/uL PT 11.6 (9.0-12.0) sec INR 1.1 (<1.2) APTT 23.5 (22.0-30.0) sec Sodium (137-145) mmol/L Potassium (3.5-5.1) mmol/L Chloride (98-107) mmol/L Carbon Dioxide (22-30) mmol/L Anion Gap mmol/L BUN (7-17) mg/dL Creatinine (0.52-1.04) mg/dL Est GFR (CKD-EPI)AfAm (>60 ml/min/1.73 sqM) Est GFR (CKD-EPI)NonAf (>60 ml/min/1.73 sqM) Glucose (74-99) mg/dL Calcium (8.4-10.2) mg/dL Total Bilirubin (0.2-1.3) mg/dL AST (14-36) U/L ALT (4-34) U/L Alkaline Phosphatase (38-126) U/L Troponin I (0.000-0.034) ng/mL Total Protein (6.3-8.2) g/dL Albumin (3.5-5.0) g/dL Urine Color Light Yellow Urine Appearance Clear (Clear) Urine pH 6.0 (5.0-8.0) Ur Specific [place] 1.018 (1.001-1.035) Urine Protein Negative (Negative) Urine Glucose (UA) Negative (Negative) Urine Ketones Negative (Negative) Urine Blood Small H (Negative) Urine Nitrite Negative (Negative) Urine Bilirubin Negative (Negative) Urine Urobilinogen <2.0 (<2.0) mg/dL Ur Leukocyte Esterase Large H (Negative) Urine RBC 5 (0-5) /hpf Urine WBC 11 H (0-5) /hpf Ur Squamous Epith Cells 3 (0-4) /hpf Urine Bacteria Rare H (None) /hpf 08/25/21 08/25/21 Range/Units 10:08 10:08 WBC (3.8-10.6) k/uL RBC (3.80-5.40) m/uL Hgb (11.4-16.0) gm/dL Hct (34.0-46.0) % MCV (80.0-100.0) fL MCH (25.0-35.0) pg MCHC (31.0-37.0) g/dL RDW (11.5-15.5) % Plt Count (150-450) k/uL MPV Neutrophils % % Lymphocytes % % Monocytes % % Eosinophils % % Basophils % % Neutrophils # (1.3-7.7) k/uL Lymphocytes # (1.0-4.8) k/uL Monocytes # (0-1.0) k/uL Eosinophils # (0-0.7) k/uL Basophils # (0-0.2) k/uL PT (9.0-12.0) sec INR (<1.2) APTT (22.0-30.0) sec Sodium 140 (137-145) mmol/L Potassium 3.8 (3.5-5.1) mmol/L Chloride 107 (98-107) mmol/L Carbon Dioxide 25 (22-30) mmol/L Anion Gap 8 mmol/L BUN 19 H (7-17) mg/dL Creatinine 0.96 (0.52-1.04) mg/dL Est GFR (CKD-EPI)AfAm 63 (>60 ml/min/1.73 sqM) Est GFR (CKD-EPI)NonAf 55 (>60 ml/min/1.73 sqM) Glucose 100 H (74-99) mg/dL Calcium 9.0 (8.4-10.2) mg/dL Total Bilirubin 0.6 (0.2-1.3) mg/dL AST 28 (14-36) U/L ALT 21 (4-34) U/L Alkaline Phosphatase 94 (38-126) U/L Troponin I <0.012 (0.000-0.034) ng/mL Total Protein 6.5 (6.3-8.2) g/dL Albumin 3.8 (3.5-5.0) g/dL Urine Color Urine Appearance (Clear) Urine pH (5.0-8.0) Ur Specific [place] (1.001-1.035) Urine Protein (Negative) Urine Glucose (UA) (Negative) Urine Ketones (Negative) Urine Blood (Negative) Urine Nitrite (Negative) Urine Bilirubin (Negative) Urine Urobilinogen (<2.0) mg/dL Ur Leukocyte Esterase (Negative) Urine RBC (0-5) /hpf Urine WBC (0-5) /hpf Ur Squamous Epith Cells (0-4) /hpf Urine Bacteria (None) /hpf Disposition Clinical Impression: UTI (urinary tract infection) Disposition: HOME SELF-CARE Condition: Stable Instructions (If sedation given, give patient instructions): Urinary Tract Infection in Women (ED) Additional Instructions: Please return to the Emergency Department if symptoms worsen or any other concerns. Prescriptions: Nitrofurantoin Monohyd/M-Cryst [Macrobid] 100 mg PO Q12HR #14 cap Is patient prescribed a controlled substance at d/c from ED?: No Referrals: Micheal Phillips DO [Primary Care Provider] - 1-2 days Time of Disposition: 10:57
[2021-08-25 10:20] LABS: Basophils # (A) 0.1 k/uL (0-0.2); Basophils % (A) 2 %; Eosinophils # (A) 0.3 k/uL (0-0.7); Eosinophils % (A) 4 %; HCT 41.1 % (34.0-46.0); HGB 13.5 gm/dL (11.4-16.0); Lymphocytes # (A) 1.7 k/uL (1.0-4.8); Lymphocytes % (A) 23 %; MCH 29.9 pg (25.0-35.0); MCHC 32.9 g/dL (31.0-37.0); MCV 90.9 fL (80.0-100.0); Mean Platelet Volume 9.2; Monocytes # (A) 0.6 k/uL (0-1.0); Monocytes % (A) 8 %; Neutrophils # (A) 4.4 k/uL (1.3-7.7); Neutrophils % (A) 60 %; Platelet Count 265 k/uL (150-450); RBC 4.53 m/uL (3.80-5.40); RDW 13.5 % (11.5-15.5); WBC 7.4 k/uL (3.8-10.6)
[2021-08-25 10:29] LABS: Albumin 3.8 g/dL (3.5-5.0); Potassium 3.8 mmol/L (3.5-5.1); Total Bilirubin 0.6 mg/dL (0.2-1.3); Total Protein 6.5 g/dL (6.3-8.2)
--- NOTE | 2021-08-25 10:33 | CT ---
EXAMINATION TYPE: CT brain wo con DATE OF EXAM: 08/25/2021 COMPARISON: 06/19/2014 HISTORY: Altered mental status. CT DLP: 1095.[address] of the brain was performed. The ventricles, basal cisterns and sulci overlying the cerebral convexities demonstrate mild enlargem ent. There is no evidence for intracranial hemorrhage or sulcal effacement. There is decreased attenuation about the periventricular white matter and deep white matter of both c erebral hemispheres, compatible with chronic small vessel ischemia. Differential diagnosis does inclu de demyelination. No mass effects are seen.No midline shift. Osseous calvarium is intact. If symptoms persist consider MRI. IMPRESSION: 1. Age related atrophic and chronic small vessel ischemic change without acute intracranial process s een at this time.
[2021-08-25 10:34] LABS: Appearance,Urine Clear (Clear); Bacteria,Urine Rare /hpf; Bilirubin,Urine Negative (Negative); Blood,Urine Small (Negative); Color,Urine Light Yellow; Glucose,Urine (UA) Negative (Negative); Ketones,Urine Negative (Negative); Leukocyte Esterase,Urine Large (Negative); Nitrite,Urine Negative (Negative); Protein,Urine Negative (Negative); RBC,Urine 5 /hpf (0-5); Specific Gravity,Urine 1.018 (1.001-1.035); Squamous Epithelial Cell,Urine 3 /hpf (0-4); Urobilinogen,Urine <2.0 mg/dL (<2.0); WBC,Urine 11 /hpf (0-5)
[2021-08-25 10:41] LABS: INR 1.1 (<1.2); Partial Thromboplastin Time 23.5 sec (22.0-30.0); Prothrombin Time 11.6 sec (9.0-12.0)
[2021-08-25] MEDS ORDERED: cefTRIAXone IN SWFI 1,000 MG/10 ML SYRINGE IVP STA (10:56)
[2021-08-25 11:19] VITALS: BP 175/90; PULSE 72; RESP 18
== END 2021-08-25 11:20 | disposition home or self-care (01) ==
LOC: EC 09:11
DX: N39.0 Urinary tract infection, site not specified (principal); Z86.73 Personal history of transient ischemic attack (TIA), and cerebral infarction without residual deficits; K21.9 Gastro-esophageal reflux disease without esophagitis; Z79.83 Long term (current) use of bisphosphonates; E78.5 Hyperlipidemia, unspecified; I10 Essential (primary) hypertension
CPT/HCPCS: 36415; 93005; 80053; 84484; 85025; 85610; 85730; 81001; 87086; 70450; 99285; 96374; 96361; J0696; 96360; 99284

== ENCOUNTER 2023-09-13 17:31 | Inpatient (IN) | payer MEDICARE, OTHER ==
--- NOTE | 2023-09-13 17:36 | ED ---
Weakness HPI - General Stated complaint: weakness Time Seen by Provider: 09/13/23 17:35 Source: RN notes reviewed, old records reviewed, Caregiver Mode of arrival: EMS Limitations: altered mental status, physical limitation - History of Present Illness Initial comments: This is a 88-year-old female unable to provide history presenting by EMS family is unable to take care of this patient anymore at home patient is significantly impaired with dementia unable to provide any history and combative not intentionally harm fully combative but just in a bill to follow commands here in the ER MD Complaint: difficulty walking Location: generalized Severity: severe Severity scale (1-10): 8 Consistency: constant, intermittent Worsens with: none Associated Symptoms: confusion - Related Data Home Medications Medication Instructions Recorded Confirmed Mirtazapine [Remeron] 15 mg PO HS 07/02/17 09/13/23 Donepezil [Aricept] 10 mg PO HS 09/30/17 09/13/23 Melatonin 10 mg PO HS 09/13/23 09/13/23 Allergies Allergy/AdvReac Type Severity Reaction Status Date / Time No Known Allergies Allergy Verified 09/13/23 18:17 Review of Systems ROS Statement: Those systems with pertinent positive or pertinent negative responses have been documented in the HPI. ROS Other: All systems not noted in ROS Statement are negative. Past Medical History Past Medical History: CVA/TIA, Dementia, GERD/Reflux, Hyperlipidemia, Hypertension, Memory Impairment Additional Past Medical History / Comment(s): Alzheimer's, large hiatal hernia, splenic aortic aneurysm History of Any Multi-Drug Resistant Organisms: None Reported Past Surgical History: Hernia Repair, Orthopedic Surgery Additional Past Surgical History / Comment(s): ganglion cysts removed, fx. right wrist repair, splenectomy Past Anesthesia/Blood Transfusion Reactions: Previous Problems w/ Anesthesia Additional Past Anesthesia/Blood Transfusion Reaction / Comment(s): difficulty waking up Past Psychological History: Anxiety Smoking Status: Never smoker Past Alcohol Use History: None Reported Past Drug Use History: None Reported - Past Family History Mother Family Medical History: No Reported History General Exam Limitations: language barrier, altered mental status, physical limitation General appearance: anxious, lethargic Head exam: Present: atraumatic, normocephalic, normal inspection Eye exam: Present: normal appearance, PERRL, EOMI. Absent: scleral icterus, conjunctival injection, periorbital swelling ENT exam: Present: normal exam, mucous membranes moist Neck exam: Present: normal inspection. Absent: tenderness, meningismus, lymphadenopathy Respiratory exam: Present: normal lung sounds bilaterally. Absent: respiratory distress, wheezes, rales, rhonchi, stridor Cardiovascular Exam: Present: regular rate, normal rhythm, normal heart sounds. Absent: systolic murmur, diastolic murmur, rubs, gallop, clicks GI/Abdominal exam: Present: soft, normal bowel sounds. Absent: distended, tenderness, guarding, rebound, rigid Extremities exam: Present: normal inspection, full ROM, normal capillary refill. Absent: tenderness, pedal edema, joint swelling, calf tenderness Back exam: Present: normal inspection Neurological exam: Present: alert, oriented X3, CN II-XII intact Psychiatric exam: Present: normal affect, normal mood Skin exam: Present: warm, dry, intact, normal color. Absent: rash Course Vital Signs 09/13/23 09/13/23 09/13/23 17:50 17:58 19:54 Temperature 98.5 F Pulse Rate 75 71 Respiratory 18 16 Rate Blood Pressure 136/94 164/101 O2 Sat by Pulse 96 95 Oximetry 09/13/23 09/14/23 09/14/23 20:44 00:00 04:00 Temperature Pulse Rate 73 73 63 Respiratory 18 16 16 Rate Blood Pressure 169/109 170/85 126/64 O2 Sat by Pulse 95 95 95 Oximetry 09/14/23 09/14/23 09/14/23 06:00 07:48 12:17 Temperature Pulse Rate 64 82 Respiratory 16 18 Rate Blood Pressure 130/71 153/77 O2 Sat by Pulse 95 95 97 Oximetry 09/14/23 09/14/23 14:10 15:33 Temperature 98 F Pulse Rate 71 79 Respiratory 18 16 Rate Blood Pressure 169/91 161/77 O2 Sat by Pulse 96 95 Oximetry - Reevaluation(s) Reevaluation #1: 09/13/23 19:28 Medical records reviewed Reevaluation #2: 09/13/23 19:29 Symptoms unchanged Reevaluation #3: 09/13/23 19:29 Patient informed of results and questions answered Reevaluation #4: Was pt. sent in by a medical professional or institution (, PA, PHOTONICS ENGINEER, urgent care, hospital, or senior living...) When possible be specific @ -no Did you speak to anyone other than the patient for history (EMS, parent, family, police, friend...)? What history was obtained from this source @ -no Did you review nursing and triage notes (agree or disagree)? Why? @ -agree Are old charts reviewed (outside hosp., previous admission, EMS record, old EKG, old radiological studies, urgent care reports/EKG's, senior living records)? Report findings @ -yes Differential Diagnosis (chest pain, altered mental status, abdominal pain women, abdominal pain men, vaginal bleeding, weakness, fever, dyspnea, syncope, headache, dizziness, GI bleed, back pain, seizure, CVA, palpatations, mental health, musculoskeletal)? @ -prior EKG interpreted by me (3pts min.). @ -yes X-rays interpreted by me (1pt min.). @ -yes negative for acute disease CT interpreted by me (1pt min.). @ -Yes negative for acute disease U/S interpreted by me (1pt. min.). @ -no What testing was considered but not performed or refused? (CT, X-rays, U/S, labs)? Why? @ -none What meds were considered but not given or refused? Why? @ -none Did you discuss the management of the patient with other professionals (professionals i.e. , PA, PHOTONICS ENGINEER, lab, RT, psych nurse, protective services social worker, hose mender, teacher, aoc director combat plans officer, geriatric case manager)? Give summary @ -no Was smoking cessation discussed for >3mins.? @ -no Was critical care preformed (if so, how long)? @ -no Were there social determinants of health that impacted care today? How? (Homelessness, low income, unemployed, alcoholism, drug addiction, transportation, low edu. Level, literacy, decrease access to med. care, half-way, rehab)? @ -none Was there de-escalation of care discussed even if they declined (Discuss DNR or withdrawal of care, Hospice)? DNR status @ -no What co-morbidities impacted this encounter? (DM, HTN, Smoking, COPD, CAD, Cancer, CVA, ARF, Chemo, Hep., AIDS, mental health diagnosis, sleep apnea, morbid obesity)? @ -none Was patient admitted / discharged? Hospital course, mention meds given and route, prescriptions, significant lab abnormalities, going to OR and other pe rtinent info. @ - 88 female will be admitted for pain able to take care of this patient at home anymore per family she is unable to follow directions or commands unsafe to live at home secondary to inability to move this patient had all secondary to her inability to participate in her care Admitted Undiagnosed new problem with uncertain prognosis? @ -no Drug Therapy requiring intensive monitoring for toxicity (Heparin, Nitro, Insulin, Cardizem)? @ -no Were any procedures done? @ -no Diagnosis/symptom? @ -Debility Acute, or Chronic, or Acute on Chronic? @ -Acute Uncomplicated (without systemic symptoms) or Complicated (systemic symptoms)? @ -Complicated Side effects of treatment? @ -no Exacerbation, Progression, or Severe Exacerbation? @ -exacerbation Poses a threat to life or bodily function? How? (Chest pain, USA, SD, pneumonia, PE, COPD, DKA, ARF, appy, cholecystitis, CVA, Diverticulitis, Homicidal, Suicidal, threat to staff... and all critical care pts) @ -yes extremes of age Reevaluation #5: Differential Altered Mental Status: Hypoglycemia, DKA, hypercapnia, ETOH, overdose, CO poisoning, trauma, myxedema coma, HTN encephalopathy, infection, encephalitis, psychosis, intercranial hemorrhage, hepatic encephalopathy, meningitis, CVA, this is not meant to be an all-inclusive list - Consultations Consultation #1: Spoke with sound who agrees to admit this patient EKG Findings - EKG Comments: EKG Findings:: EKG is sinus 81 TN 211 QRS 133 QTc 469 - EKG Results: EKG: interpreted by ERMD Medical Decision Making - Medical Decision Making 88 female will be admitted for pain able to take care of this patient at home anymore per family she is unable to follow directions or commands unsafe to live at home secondary to inability to move this patient had all second Joshua to her inability to participate in her care - Lab Data Result diagrams: 09/13/23 18:03 09/13/23 18:03 Lab Results 09/13/23 09/13/23 09/13/23 Range/Units 18:03 18:03 18:03 WBC 6.9 (3.8-10.6) k/uL RBC 4.54 (3.80-5.40) m/uL Hgb 12.9 (11.4-16.0) gm/dL Hct 39.6 (34.0-46.0) % MCV 87.3 (80.0-100.0) fL MCH 28.5 (25.0-35.0) pg MCHC 32.6 (31.0-37.0) g/dL RDW 14.1 (11.5-15.5) % Plt Count 250 (150-450) k/uL MPV 9.5 Neutrophils % 52 % Lymphocytes % 30 % Monocytes % 12 % Eosinophils % 3 % Basophils % 1 % Neutrophils # 3.6 (1.3-7.7) k/uL Lymphocytes # 2.1 (1.0-4.8) k/uL Monocytes # 0.8 (0-1.0) k/uL Eosinophils # 0.2 (0-0.7) k/uL Basophils # 0.1 (0-0.2) k/uL PT 11.2 (10.0-12.5) sec INR 1.0 (<1.2) APTT 22.7 (22.0-30.0) sec Sodium 140 (137-145) mmol/L Potassium 4.0 (3.5-5.1) mmol/L Chloride 108 H (98-107) mmol/L Carbon Dioxide 26 (22-30) mmol/L Anion Gap 6 mmol/L BUN 19 H (7-17) mg/dL Creatinine 1.01 (0.52-1.04) mg/dL Est GFR (CKD-EPI)AfAm 58 (>60 ml/min/1.73 sqM) Est GFR (CKD-EPI)NonAf 51 (>60 ml/min/1.73 sqM) Glucose 94 (74-99) mg/dL Plasma Lactic Acid Hai (0.7-2.0) mmol/L Calcium 8.9 (8.4-10.2) mg/dL Phosphorus 4.0 (2.5-4.5) mg/dL Magnesium 1.9 (1.6-2.3) mg/dL Total Bilirubin 0.6 (0.2-1.3) mg/dL AST 27 (14-36) U/L ALT 15 (4-34) U/L Alkaline Phosphatase 85 (38-126) U/L Troponin I (0.000-0.034) ng/mL Total Protein 6.5 (6.3-8.2) g/dL Albumin 3.6 (3.5-5.0) g/dL TSH 1.990 (0.465-4.680) mIU/L 09/13/23 09/13/23 Range/Units 18:03 18:03 WBC (3.8-10.6) k/uL RBC (3.80-5.40) m/uL Hgb (11.4-16.0) gm/dL Hct (34.0-46.0) % MCV (80.0-100.0) fL MCH (25.0-35.0) pg MCHC (31.0-37.0) g/dL RDW (11.5-15.5) % Plt Count (150-450) k/uL MPV Neutrophils % % Lymphocytes % % Monocytes % % Eosinophils % % Basophils % % Neutrophils # (1.3-7.7) k/uL Lymphocytes # (1.0-4.8) k/uL Monocytes # (0-1.0) k/uL Eosinophils # (0-0.7) k/uL Basophils # (0-0.2) k/uL PT (10.0-12.5) sec INR (<1.2) APTT (22.0-30.0) sec Sodium (137-145) mmol/L Potassium (3.5-5.1) mmol/L Chloride (98-107) mmol/L Carbon Dioxide (22-30) mmol/L Anion Gap mmol/L BUN (7-17) mg/dL Creatinine (0.52-1.04) mg/dL Est GFR (CKD-EPI)AfAm (>60 ml/min/1.73 sqM) Est GFR (CKD-EPI)NonAf (>60 ml/min/1.73 sqM) Glucose (74-99) mg/dL Plasma Lactic Acid Hai 1.1 (0.7-2.0) mmol/L Calcium (8.4-10.2) mg/dL Phosphorus (2.5-4.5) mg/dL Magnesium (1.6-2.3) mg/dL Total Bilirubin (0.2-1.3) mg/dL AST (14-36) U/L ALT (4-34) U/L Alkaline Phosphatase (38-126) U/L Troponin I 0.015 (0.000-0.034) ng/mL Total Protein (6.3-8.2) g/dL Albumin (3.5-5.0) g/dL TSH (0.465-4.680) mIU/L - EKG Data -: EKG Interpreted by Ok - Radiology Data Radiology results: report reviewed (Chest x-ray is negative for acute disease), image reviewed Disposition Clinical Impression: Altered mental status, Dementia, Debility Disposition: ADMITTED IP TO THIS HOSP Condition: Fair Is patient prescribed a controlled substance at d/c from ED?: No Time of Disposition: 19:20
[2023-09-13] MEDS: SODIUM CHLORIDE 0.9% 1,000 ML IV STA (18:09)
[2023-09-13] MEDS: LORazepam 2 MG/ML INJ IV STA (18:44)
[2023-09-13 18:51] LABS: Basophils # (A) 0.1 k/uL (0-0.2); Basophils % (A) 1 %; Eosinophils # (A) 0.2 k/uL (0-0.7); Eosinophils % (A) 3 %; HCT 39.6 % (34.0-46.0); HGB 12.9 gm/dL (11.4-16.0); Lymphocytes # (A) 2.1 k/uL (1.0-4.8); Lymphocytes % (A) 30 %; MCH 28.5 pg (25.0-35.0); MCHC 32.6 g/dL (31.0-37.0); MCV 87.3 fL (80.0-100.0); Mean Platelet Volume 9.5; Monocytes # (A) 0.8 k/uL (0-1.0); Monocytes % (A) 12 %; Neutrophils # (A) 3.6 k/uL (1.3-7.7); Neutrophils % (A) 52 %; Platelet Count 250 k/uL (150-450); RBC 4.54 m/uL (3.80-5.40); RDW 14.1 % (11.5-15.5); WBC 6.9 k/uL (3.8-10.6)
[2023-09-13 19:01] LABS: ALT 15 U/L (4-34); AST 27 U/L (14-36); African American GFR (CKD) 58 (>60 ml/min/1.73 sqM); Albumin 3.6 g/dL (3.5-5.0); Alkaline Phosphatase 85 U/L (38-126); Anion Gap 6 mmol/L; Blood Urea Nitrogen 19 mg/dL (7-17); Calcium 8.9 mg/dL (8.4-10.2); Carbon Dioxide 26 mmol/L (22-30); Chloride 108 mmol/L (98-107); Glucose 94 mg/dL (74-99); Magnesium 1.9 mg/dL (1.6-2.3); Non-African American GFR(CKD) 51 (>60 ml/min/1.73 sqM); Sodium 140 mmol/L (137-145); Total Bilirubin 0.6 mg/dL (0.2-1.3); Total Protein 6.5 g/dL (6.3-8.2)
--- NOTE | 2023-09-13 19:01 | XR ---
EXAMINATION TYPE: XR chest 1V portable DATE OF EXAM: 09/13/2023 6:21 PM CLINICAL INDICATION:Female, 88 years old with history of ams; [facility] COMPARISON: Chest radiographs from 05/24/2021 TECHNIQUE: XR chest 1V portable Frontal view of the chest. FINDINGS: Lungs/Pleura: Prominent interstitial lung markings are seen scattered throughout the lungs. No eviden ce of focal consolidation, pneumothorax or pleural effusion. Pulmonary vascularity: Unremarkable. Heart/mediastinum: Cardiomediastinal silhouette is unremarkable. Large hiatal hernia projects of the mediastinum. Musculoskeletal: No acute osseous pathology. IMPRESSION: 1. No acute cardiopulmonary disease process. 2. COPD changes. 3. Large hiatal hernia.
[2023-09-13 19:08] LABS: Partial Thromboplastin Time 22.7 sec (22.0-30.0); Prothrombin Time 11.2 sec (10.0-12.5)
[2023-09-13] MEDS ORDERED: NALOXONE 0.4 MG/ML 1 ML VIAL IV PRN (19:26)
[2023-09-13] MEDS ORDERED: ONDANSETRON 4 MG/2 ML VIAL IVP PRN (19:26)
[2023-09-13] MEDS: diphenhydrAMINE 50 MG/ML 1 ML VIAL IVP STA (19:28)
[2023-09-13] MEDS: HYDROmorphone 1 MG/ML 1 ML SYRINGE IVP STA (19:31)
[2023-09-13] MEDS: SODIUM CHLORIDE 0.9% 1,000 ML IV SCH (20:50)
[2023-09-14] MEDS: HYDROmorphone 0.5 MG/0.5 ML SYRINGE IVP PRN (00:05)
[2023-09-14 12:49] LABS: Appearance,Urine Clear (Clear); Bilirubin,Urine Negative (Negative); Blood,Urine Negative (Negative); Color,Urine Colorless; Glucose,Urine (UA) Negative (Negative); Ketones,Urine Negative (Negative); Leukocyte Esterase,Urine Small (Negative); Nitrite,Urine Negative (Negative); Protein,Urine Negative (Negative); RBC,Urine <1 /hpf (0-5); Specific Gravity,Urine 1.007 (1.001-1.035); Squamous Epithelial Cell,Urine <1 /hpf (0-4); Urobilinogen,Urine <2.0 mg/dL (<2.0); WBC,Urine 1 /hpf (0-5)
[2023-09-14] MEDS ORDERED: HALOPERIDOL LACTATE 5 MG/ML 1 ML VIAL IVP PRN (13:58)
--- NOTE | 2023-09-14 14:08 | P.HPIM ---
History of Present Illness H&P Date: 09/14/23 History of present illness; patient 88-year-old lady with past medical history noted for dementia who presented to the ER for evaluation for worsening confusion. Patient lives at home with family, family have been having a hard time taking care of her recently because of her worsening dementia. Patient gets agitated easily at home. There is no complaint of fever or chills. No complaint of nausea, vomiting, abdominal pain. Family has not noticed any weakness of any extremity. Family at this time are interested in placement at a long-term care facility. Initial lab work done in the ER showed W6.9, hemoglobin 9, platelet count 250, sodium 140, potassium 4, BUN 19, creatinine 1.01, glucose 94, calcium 8.9, AST 27, ALT 15, UA negative for infection EKG done in the ER showed heart rate of81 , no ST segment elevation or depression seen, no T-wave inversions seen. Chest x-ray done in the ER showed no acute cardiopulmonary process Patient admitted to internal medicine service REVIEW OF SYSTEMS: Review of system cannot be obtained as patient is confused and has dementia PHYSICAL EXAMINATION: GENERAL: The patient is alert to self, history of dementia HEENT: Pupils are round and equally reacting to light. EOMI. No scleral icterus. No conjunctival pallor. Normocephalic, atraumatic. No pharyngeal erythema. No thyromegaly. CARDIOVASCULAR: S1 and S2 present. No murmurs, rubs, or gallops. PULMONARY: Chest is clear to auscultation, no wheezing or crackles. ABDOMEN: Soft, nontender, nondistended, normoactive bowel sounds. No palpable organomegaly. MUSCULOSKELETAL: No joint swelling or deformity. EXTREMITIES: No cyanosis, clubbing, or pedal edema. NEUROLOGICAL: Moving all extremities SKIN: No rashes. Assessment and plan Worsening agitation Dementia Failure to thrive Inability to take care of herself Monitor vital signs Monitor CBC Monitor CMP Fall precaution Delirium precaution Continue as needed Haldol for agitation Consult psychiatry for worsening dementia Consult case management to help with placement Labs and medication were reviewed.. Continue same treatment. Continue with symptomatic treatment. Resume home medication. Monitor labs and vitals. DVT and GI prophylaxis. Further recommendations as per clinical course of the patient Dictation was produced using [employer] dictation software. please excuse any grammatical, word or spelling errors. Past Medical History Past Medical History: CVA/TIA, Dementia, GERD/Reflux, Hyperlipidemia, Hypertension, Memory Impairment Additional Past Medical History / Comment(s): Alzheimer's, large hiatal hernia, splenic aortic aneurysm History of Any Multi-Drug Resistant Organisms: None Reported Past Surgical History: Hernia Repair, Orthopedic Surgery Additional Past Surgical History / Comment(s): ganglion cysts removed, fx. right wrist repair, splenectomy Past Anesthesia/Blood Transfusion Reactions: Previous Problems w/ Anesthesia Additional Past Anesthesia/Blood Transfusion Reaction / Comment(s): difficulty waking up Past Psychological History: Anxiety Smoking Status: Never smoker Past Alcohol Use History: None Reported Past Drug Use History: None Reported - Past Family History Mother Family Medical History: No Reported History Medications and Allergies Home Medications Medication Instructions Recorded Confirmed Type Mirtazapine [Remeron] 15 mg PO HS 07/02/17 09/13/23 History Donepezil [Aricept] 10 mg PO HS 09/30/17 09/13/23 History Melatonin 10 mg PO HS 09/13/23 09/13/23 History Allergies Allergy/AdvReac Type Severity Reaction Status Date / Time No Known Allergies Allergy Verified 09/13/23 18:17 Physical Exam Vitals: Vital Signs Temp Pulse Resp BP Pulse Ox 09/14/23 12:17 82 18 153/77 97 09/14/23 07:48 95 09/14/23 06:00 64 16 130/71 95 09/14/23 04:00 63 16 126/64 95 09/14/23 00:00 73 16 170/85 95 09/13/23 20:44 73 18 169/109 09/13/23 19:54 71 16 164/101 09/13/23 17:58 98.5 F 75 96 09/13/23 17:50 18 136/94 Intake and Output 09/13/23 09/14/23 09/14/23 22:59 06:59 14:59 Other: Weight 68.039 kg Results CBC & Chem 7: 09/13/23 18:03 09/13/23 18:03 Labs: Abnormal Lab Results - Last 24 Hours (Table) 09/13/23 09/14/23 Range/Units 18:03 12:17 Chloride 108 H (98-107) mmol/L BUN 19 H (7-17) mg/dL Ur Leukocyte Esterase Small H (Negative)
[2023-09-14] MEDS: LORazepam 2 MG/ML INJ IV PRN (14:09)
[2023-09-14] MEDS: HALOPERIDOL LACTATE 5 MG/ML 1 ML VIAL IM PRN (16:28)
[2023-09-14] MEDS: MIRTAZAPINE 15 MG TAB PO SCH (20:24)
[2023-09-14] MEDS: DONEPEZIL 10 MG TAB PO SCH (20:24)
[2023-09-14] MEDS: MELATONIN 5 MG TABLET PO SCH (20:24)
--- NOTE | 2023-09-15 15:58 | P.CN ---
Psychiatric Consult - . Consult date: 09/15/23 Consult:: 09/15/23 15:56 CONSULTATION Reason for consult: Altered MS. identifying Data: The patient is a 88 year old, . White female, who lives with her daughters GRIFFIN Encarnacion. History of present illness: The patient was brought to the emergency department with combativeness, confusion and advanced dementia. The family is unable to take care of the patient at home. After initial examination and other work-up, the patient was transferred to medical floor for further management. During this evaluation, the patient was unable to provide aany history. As per her daughter, the patient started showing gradual decline in memory over the last 7 years. Recently, she is becoming combative and aggressive more confused than before. The family is unable to manage her at home. She is on Aricept, Melatonin, Remeron, and Seroquel. The Seroquel was added today for agitated behavior and pulling her IV. Her daughter indicated that she hates IV and will try to pull it out. She mentioned her mother likes to stay in chair and sleep off and on. History of past psychiatric illness: No other than stated in HPI. No history of suicidal or homicidal ideations or behavior. Past medical history: HTN, Dyslipidemia, GERD, Dementia. Substance abuse history: None MSE: Alert and semi-attentive Oriented x1 Pleasant and cooperative. Psychomotor activity: Normal. Mood: Fine. Affect: Consistent with mood. SI or HI: None Thought content and process: No overt delusions noted. Perceptual disturbance: As per nursing staff, the patient was seeing bugs today. As per family, the patient sometimes talks to her sisters and other people Cognition: Global impairment. Judgement and Insight: Impaired. Diagnosis: Senile Dementia of Alzheimers type, advanced. Recommendations: The patient needs placement in supervised structured cognitive facility post discharge. Continue current medications. 09/15/23 15:57
--- NOTE | 2023-09-15 21:38 | P.PN ---
Subjective Progress Note Date: 09/15/23 History of present illness; patient 88-year-old lady with past medical history noted for dementia who presented to the ER for evaluation for worsening confusion. Patient lives at home with family, family have been having a hard time taking care of her recently because of her worsening dementia. Patient gets agitated easily at home. There is no complaint of fever or chills. No complaint of nausea, vomiting, abdominal pain. Family has not noticed any weakness of any extremity. Family at this time are interested in placement at a long-term care facility. Initial lab work done in the ER showed W6.9, hemoglobin 9, platelet count 250, sodium 140, potassium 4, BUN 19, creatinine 1.01, glucose 94, calcium 8.9, AST 27, ALT 15, UA negative for infection EKG done in the ER showed heart rate of81 , no ST segment elevation or depression seen, no T-wave inversions seen. Chest x-ray done in the ER showed no acute cardiopulmonary process Patient admitted to internal medicine service 09/15/2023 Patient is evaluated in follow up today on the medical floor. Patient remains confused and agitated however appears to be resting comfortably upon assessment. Recommending seroquel in place of IV ativan and haldol which have been discontinued. Psychiatry evaluation pending. REVIEW OF SYSTEMS: Review of system cannot be obtained as patient is confused and has dementia PHYSICAL EXAMINATION: GENERAL: The patient is alert to self, history of dementia HEENT: Pupils are round and equally reacting to light. EOMI. No scleral icterus. No conjunctival pallor. Normocephalic, atraumatic. No pharyngeal erythema. No thyromegaly. CARDIOVASCULAR: S1 and S2 present. No murmurs, rubs, or gallops. PULMONARY: Chest is clear to auscultation, no wheezing or crackles. ABDOMEN: Soft, nontender, nondistended, normoactive bowel sounds. No palpable organomegaly. MUSCULOSKELETAL: No joint swelling or deformity. EXTREMITIES: No cyanosis, clubbing, or pedal edema. NEUROLOGICAL: Moving all extremities SKIN: No rashes. Assessment and plan Worsening agitation Dementia, alzheimers Failure to thrive Inability to take care of herself History of stroke Hypertension Hyperlipidemia Gastroesophageal reflux disease DVT prophylaxis Full Code Plan Discontinue IV ativan IV haldol and IV dilaudid Recommend seroquel HS and as needed daily Psychiatry consultation Social work following for ECF needs. The impression and plan of care has been dictated by Najma Ferreira, Nurse Practitioner as directed. Dr. Fiona MD I have performed a history and physical examination and medical decision making of this patient, discussed the same with the dictator, and agree with the dictators assessment and plan as written, documented as a scribe. Based on total visit time, I have performed more than 50% of this visit. Objective - Vital Signs Vital signs: Vital Signs Temp 98.0 F 09/15/23 19:02 Pulse 84 09/15/23 19:02 Resp 16 09/15/23 19:02 BP 141/97 09/15/23 19:02 Pulse Ox 97 09/15/23 19:02 FiO2 Intake & Output 09/15/23 09/15/23 09/16/23 06:59 18:59 06:59 Intake Total 1020 Balance 1020 Intake: Oral 1020 Other: Voiding Method Diaper Diaper External Catheter External Catheter # Voids 1 3 - Labs CBC & Chem 7: 09/13/23 18:03 09/13/23 18:03 Assessment and Plan Time with Patient: Less than 30
[2023-09-15] MEDS: QUEtiapine 25 MG TAB PO SCH (22:08)
[2023-09-16] MEDS: HEPARIN SODIUM,PORCINE 5,000 UNIT/ML 1 ML VIAL SQ SCH (13:09)
--- NOTE | 2023-09-16 15:33 | CDI ---
Documentation Clarification Form Date: 09/16/2023 03:15:40 PM From: Tamar Ness RN, CCD Phone: [phone] Admit Date: 09/13/2023 07:26:00 PM Patient Name: Maciej Olivares Visit Number: [id number] Discharge Date: ATTENTION: The Clinical Documentation Specialists (CDI) and [facility] Coding Staff appreciate your assistance in clarifying documentation. Please respond to the clarification below the line at the bottom and electronically sign. The CDI & [facility] Coding staff will review the response and follow-up if needed. Please note: Queries are made part of the Legal Health Record. If you have any questions, please contact the author of this message via ITS. Dr. Kelton James Senile Dementia of Alzheimers type, advanced.. Additional clarification is requested. Patient history/risk factors: HTN, Dyslipidemia, GERD, Dementia. Clinical indicators: 88-year-old female recently, she is becoming combative and aggressive more confused than before. The family is unable to manage her at home 09/12 VS: 136/94 75 18 98.5 96% RA 09/12 WBC 6.9, BUN 19, Creatinine 1.01 09/14 Psychiatric Consult: Cognition: Global impairment. Judgement and Insight: Impaired. 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 Addendum Dictated By:Kelton James MD Addendum Signed By: <Electronically signed by Kelton James MD> 09/24/23 1414 MTDD
--- NOTE | 2023-09-16 22:09 | P.PN ---
Subjective Progress Note Date: 09/16/23 History of present illness; patient 88-year-old lady with past medical history noted for dementia who presented to the ER for evaluation for worsening confusion. Patient lives at home with family, family have been having a hard time taking care of her recently because of her worsening dementia. Patient gets agitated easily at home. There is no complaint of fever or chills. No complaint of nausea, vomiting, abdominal pain. Family has not noticed any weakness of any extremity. Family at this time are interested in placement at a long-term care facility. Initial lab work done in the ER showed W6.9, hemoglobin 9, platelet count 250, sodium 140, potassium 4, BUN 19, creatinine 1.01, glucose 94, calcium 8.9, AST 27, ALT 15, UA negative for infection EKG done in the ER showed heart rate of81 , no ST segment elevation or depression seen, no T-wave inversions seen. Chest x-ray done in the ER showed no acute cardiopulmonary process Patient admitted to internal medicine service 09/15/2023 Patient is evaluated in follow up today on the medical floor. Patient remains confused and agitated however appears to be resting comfortably upon assessment. Recommending seroquel in place of IV ativan and haldol which have been discontinued. Psychiatry evaluation pending. Patient evaluated in follow up. Patient continues to be resting in bed. Was up last night agitated but has settled with seroquel. REVIEW OF SYSTEMS: Review of system cannot be obtained as patient is confused and has dementia PHYSICAL EXAMINATION: GENERAL: The patient is alert to self, history of dementia HEENT: Pupils are round and equally reacting to light. EOMI. No scleral icterus. No conjunctival pallor. Normocephalic, atraumatic. No pharyngeal erythema. No thyromegaly. CARDIOVASCULAR: S1 and S2 present. No murmurs, rubs, or gallops. PULMONARY: Chest is clear to auscultation, no wheezing or crackles. ABDOMEN: Soft, nontender, nondistended, normoactive bowel sounds. No palpable organomegaly. MUSCULOSKELETAL: No joint swelling or deformity. EXTREMITIES: No cyanosis, clubbing, or pedal edema. NEUROLOGICAL: Moving all extremities SKIN: No rashes. Assessment and plan Worsening agitation secondary to alzheimers dementia worsened by hospitalization. Dementia, alzheimers Failure to thrive Inability to take care of herself History of stroke Hypertension Hyperlipidemia Gastroesophageal reflux disease DVT prophylaxis Full Code Plan Discontinue IV ativan IV haldol and IV dilaudid Recommend seroquel HS and as needed daily Psychiatry consultation Agitation may not completely resolve while hospitalized due to underlying dementia. Social work following for ECF needs. Patient pending subacute rehab. The impression and plan of care has been dictated by Najma Ferreira, Nurse Practitioner as directed. Dr. Fiona MD I have performed a history and physical examination and medical decision making of this patient, discussed the same with the dictator, and agree with the dictators assessment and plan as written, documented as a scribe. Based on total visit time, I have performed more than 50% of this visit. Objective - Vital Signs Vital signs: Vital Signs Temp 97.9 F 09/16/23 19:46 Pulse 82 09/16/23 19:46 Resp 15 09/16/23 19:46 BP 129/82 09/16/23 19:46 Pulse Ox 94 L 09/16/23 19:46 FiO2 Intake & Output 09/16/23 09/16/23 09/17/23 06:59 18:59 06:59 Intake Total 500 1080 Balance 500 1080 Intake: Intake, IV Titration 0 Amount Sodium Chloride 0.9% 1, 0 000 ml @ 75 mls/hr IV . [id number] [facility] Rx#:[id number] Oral 500 1080 Other: Voiding Method Diaper Diaper Incontinent # Voids 2 3 - Labs CBC & Chem 7: 09/13/23 18:03 09/13/23 18:03 Assessment and Plan Time with Patient: Less than 30
[2023-09-17] MEDS: QUEtiapine 25 MG TAB PO PRN (00:07)
--- NOTE | 2023-09-17 16:52 | P.PN ---
Subjective Progress Note Date: 09/17/23 History of present illness; patient 88-year-old lady with past medical history noted for dementia who presented to the ER for evaluation for worsening confusion. Patient lives at home with family, family have been having a hard time taking care of her recently because of her worsening dementia. Patient gets agitated easily at home. There is no complaint of fever or chills. No complaint of nausea, vomiting, abdominal pain. Family has not noticed any weakness of any extremity. Family at this time are interested in placement at a long-term care facility. Initial lab work done in the ER showed W6.9, hemoglobin 9, platelet count 250, sodium 140, potassium 4, BUN 19, creatinine 1.01, glucose 94, calcium 8.9, AST 27, ALT 15, UA negative for infection EKG done in the ER showed heart rate of81 , no ST segment elevation or depression seen, no T-wave inversions seen. Chest x-ray done in the ER showed no acute cardiopulmonary process Patient admitted to internal medicine service 09/15/2023 Patient is evaluated in follow up today on the medical floor. Patient remains confused and agitated however appears to be resting comfortably upon assessment. Recommending seroquel in place of IV ativan and haldol which have been discontinued. Psychiatry evaluation pending. Patient evaluated in follow up. Patient continues to be resting in bed. Was up last night agitated but has settled with seroquel. 09/17/2023 Patient evaluated today resting in bed. She is more awake and alert and less confused. She is alert x 1. Less agitated. REVIEW OF SYSTEMS: Review of system cannot be obtained as patient is confused and has dementia PHYSICAL EXAMINATION: GENERAL: The patient is alert to self, history of dementia HEENT: Pupils are round and equally reacting to light. EOMI. No scleral icterus. No conjunctival pallor. Normocephalic, atraumatic. No pharyngeal erythema. No thyromegaly. CARDIOVASCULAR: S1 and S2 present. No murmurs, rubs, or gallops. PULMONARY: Chest is clear to auscultation, no wheezing or crackles. ABDOMEN: Soft, nontender, nondistended, normoactive bowel sounds. No palpable organomegaly. MUSCULOSKELETAL: No joint swelling or deformity. EXTREMITIES: No cyanosis, clubbing, or pedal edema. NEUROLOGICAL: Moving all extremities SKIN: No rashes. Assessment and plan Worsening agitation secondary to alzheimers dementia worsened by hospitalization. Dementia, alzheimers Failure to thrive Inability to take care of herself History of stroke Hypertension Hyperlipidemia Gastroesophageal reflux disease DVT prophylaxis Full Code Plan Discontinue IV ativan IV haldol and IV dilaudid Recommend seroquel HS and as needed daily Psychiatry consultation Agitation may not completely resolve while hospitalized due to underlying dementia. Social work following for ECF needs. Patient pending subacute rehab. The impression and plan of care has been dictated by Najma Ferreira Nurse Practitioner as directed. Dr. Fiona MD I have performed a history and physical examination and medical decision making of this patient, discussed the same with the dictator, and agree with the dictators assessment and plan as written, documented as a scribe. Based on total visit time, I have performed more than 50% of this visit. Objective - Vital Signs Vital signs: Vital Signs Temp 97.7 F 09/17/23 12:06 Pulse 79 09/17/23 12:06 Resp 16 09/17/23 12:06 BP 153/82 09/17/23 12:06 Pulse Ox 95 09/17/23 12:06 FiO2 Intake & Output 09/16/23 09/17/23 09/17/23 18:59 06:59 18:59 Intake Total 1080 Balance 1080 Intake: Oral 1080 Other: Voiding Method Diaper Diaper Diaper Incontinent Incontinent Incontinent # Voids 3 1 # Bowel Movements 0 - Labs CBC & Chem 7: 09/13/23 18:03 09/13/23 18:03 Assessment and Plan Time with Patient: Less than 30
[2023-09-18 12:39] VITALS: BMI 26.5
--- NOTE | 2023-09-19 01:50 | P.PN ---
Subjective Progress Note Date: 09/18/23 History of present illness; patient 88-year-old lady with past medical history noted for dementia who presented to the ER for evaluation for worsening confusion. Patient lives at home with family, family have been having a hard time taking care of her recently because of her worsening dementia. Patient gets agitated easily at home. There is no complaint of fever or chills. No complaint of nausea, vomiting, abdominal pain. Family has not noticed any weakness of any extremity. Family at this time are interested in placement at a long-term care facility. Initial lab work done in the ER showed W6.9, hemoglobin 9, platelet count 250, sodium 140, potassium 4, BUN 19, creatinine 1.01, glucose 94, calcium 8.9, AST 27, ALT 15, UA negative for infection EKG done in the ER showed heart rate of81 , no ST segment elevation or depression seen, no T-wave inversions seen. Chest x-ray done in the ER showed no acute cardiopulmonary process Patient admitted to internal medicine service 09/15/2023 Patient is evaluated in follow up today on the medical floor. Patient remains confused and agitated however appears to be resting comfortably upon assessment. Recommending seroquel in place of IV ativan and haldol which have been discontinued. Psychiatry evaluation pending. Patient evaluated in follow up. Patient continues to be resting in bed. Was up last night agitated but has settled with seroquel. 09/17/2023 Patient evaluated today resting in bed. She is more awake and alert and less confused. She is alert x 1. Less agitated. 09/18/2023 Patient is seen and evaluated in follow-up this morning currently up with the nursing staff on the commode. Patient is extremely weak requiring walker with assistance. Patient is very unsteady and recommend PT/OT therapy daily. Patient is less agitated and is cooperative with staff. Continue Seroquel at night and currently awaiting an accepting ECF. [facility] has refused the patient and case management currently working on multiple referrals. Patient will also require insurance authorization. Patient is afebrile with no reported chest pain or shortness of breath. Psychiatry has evaluated the patient REVIEW OF SYSTEMS: Review of system cannot be obtained as patient is confused and has dementia PHYSICAL EXAMINATION: GENERAL: The patient is alert to self, history of dementia, thin build, elderly appearing HEENT: Pupils are round and equally reacting to light. EOMI. No scleral icterus. No conjunctival pallor. Normocephalic, atraumatic. No pharyngeal erythema. No thyromegaly. CARDIOVASCULAR: S1 and S2 present. No murmurs, rubs, or gallops. PULMONARY: Diminished breath sounds bilaterally otherwise chest is clear to auscultation, no wheezing or crackles. ABDOMEN: Soft, thin, scaphoid nontender, nondistended, normoactive bowel sounds. No palpable organomegaly. MUSCULOSKELETAL: No joint swelling or deformity. EXTREMITIES: No cyanosis, clubbing, or pedal edema. NEUROLOGICAL: Moving all extremities SKIN: No rashes. Assessment and plan Worsening agitation secondary to alzheimers dementia worsened by hospit alization. Dementia, alzheimers Failure to thrive Inability to take care of herself History of stroke Hypertension Hyperlipidemia Gastroesophageal reflux disease DVT prophylaxis GI prophylaxis Full Code Plan Discontinue IV ativan IV haldol and IV dilaudid, continue with Seroquel and psychiatry evaluated the patient making adjustments Encourage frequent reorientation and family to visit agitation may not completely resolve while hospitalized due to underlying dementia. Case management/social work following for ECF needs. Patient pending subacute rehab. Multiple referrals placed as [facility] has refused the patient. Case management is following and patient will also require insurance authorization on discharge Likely no plans for discharge prior to Thursday due to pending accepting facility and insurance authorization. The impression and plan of care has been dictated by Nisha Gorman Nurse Practitioner as directed. Dr. Fiona MD I have performed a history and physical examination and medical decision making of this patient, discussed the same with the dictator, and agree with the dictators assessment and plan as written, documented as a scribe. Based on total visit time, I have performed more than 50% of this visit. Objective - Vital Signs Vital signs: Vital Signs Temp 97.8 F 09/18/23 07:29 Pulse 77 09/18/23 07:29 Resp 16 09/18/23 07:29 BP 138/89 09/18/23 07:29 Pulse Ox 94 L 09/18/23 07:29 FiO2 Intake & Output 09/17/23 09/18/23 09/18/23 18:59 06:59 18:59 Other: Voiding Method Diaper Diaper Diaper Incontinent Incontinent Incontinent # Voids 1 # Bowel Movements 0 - Labs CBC & Chem 7: 09/13/23 18:03 09/13/23 18:03
[2023-09-19] MEDS: LORATADINE 10 MG TAB PO SCH (13:19)
[2023-09-19] MEDS: FLUTICASONE NASAL 50MCG/SPRAY 16GM BTL EA NOSTRIL SCH (13:19)
--- NOTE | 2023-09-19 15:43 | P.PN ---
Subjective Progress Note Date: 09/19/23 History of present illness; patient 88-year-old lady with past medical history noted for dementia who presented to the ER for evaluation for worsening confusion. Patient lives at home with family, family have been having a hard time taking care of her recently because of her worsening dementia. Patient gets agitated easily at home. There is no complaint of fever or chills. No complaint of nausea, vomiting, abdominal pain. Family has not noticed any weakness of any extremity. Family at this time are interested in placement at a long-term care facility. Initial lab work done in the ER showed W6.9, hemoglobin 9, platelet count 250, sodium 140, potassium 4, BUN 19, creatinine 1.01, glucose 94, calcium 8.9, AST 27, ALT 15, UA negative for infection EKG done in the ER showed heart rate of81 , no ST segment elevation or depression seen, no T-wave inversions seen. Chest x-ray done in the ER showed no acute cardiopulmonary process Patient admitted to internal medicine service 09/15/2023 Patient is evaluated in follow up today on the medical floor. Patient remains confused and agitated however appears to be resting comfortably upon assessment. Recommending seroquel in place of IV ativan and haldol which have been discontinued. Psychiatry evaluation pending. Patient evaluated in follow up. Patient continues to be resting in bed. Was up last night agitated but has settled with seroquel. 09/17/2023 Patient evaluated today resting in bed. She is more awake and alert and less confused. She is alert x 1. Less agitated. 09/18/2023 Patient is seen and evaluated in follow-up this morning currently up with the nursing staff on the commode. Patient is extremely weak requiring walker with assistance. Patient is very unsteady and recommend PT/OT therapy daily. Patient is less agitated and is cooperative with staff. Continue Seroquel at night and currently awaiting an accepting ECF. [facility] has refused the patient and case management currently working on multiple referrals. Patient will also require insurance authorization. Patient is afebrile with no reported chest pain or shortness of breath. Psychiatry has evaluated the patient REVIEW OF SYSTEMS: Review of system cannot be obtained as patient is confused and has dementia PHYSICAL EXAMINATION: GENERAL: The patient is alert to self, history of dementia, thin build, elderly appearing HEENT: Pupils are round and equally reacting to light. EOMI. No scleral icterus. No conjunctival pallor. Normocephalic, atraumatic. No pharyngeal erythema. No thyromegaly. CARDIOVASCULAR: S1 and S2 present. No murmurs, rubs, or gallops. PULMONARY: Diminished breath sounds bilaterally otherwise chest is clear to auscultation, no wheezing or crackles. ABDOMEN: Soft, thin, scaphoid nontender, nondistended, normoactive bowel sounds. No palpable organomegaly. MUSCULOSKELETAL: No joint swelling or deformity. EXTREMITIES: No cyanosis, clubbing, or pedal edema. NEUROLOGICAL: Moving all extremities SKIN: No rashes. Assessment and plan Worsening agitation secondary to alzheimers dementia worsened by hospital ization. Dementia, alzheimers Allergic rhinitis Failure to thrive Inability to take care of herself History of stroke Hypertension Hyperlipidemia Gastroesophageal reflux disease DVT prophylaxis GI prophylaxis Full Code Plan Discontinue IV ativan IV haldol and IV dilaudid, continue with Seroquel and psychiatry evaluated the patient making adjustments Encourage frequent reorientation and family to visit Patient will be started on claritin and flonase. agitation may not completely resolve while hospitalized due to underlying dementia. Case management/social work following for ECF needs. Patient pending subacute rehab. Multiple referrals placed as [facility] has refused the patient. Case management is following and patient will also require insurance authorization on discharge Likely no plans for discharge prior to Thursday due to pending accepting facility and insurance authorization. The impression and plan of care has been dictated by Najma Ferreira Nurse Practitioner as directed. Dr. Fiona MD I have performed a history and physical examination and medical decision making of this patient, discussed the same with the dictator, and agree with the dictators assessment and plan as written, documented as a scribe. Based on total visit time, I have performed more than 50% of this visit. Objective - Vital Signs Vital signs: Vital Signs Temp 97.7 F 09/19/23 07:37 Pulse 74 09/19/23 07:37 Resp 14 09/19/23 07:37 BP 137/80 09/19/23 07:37 Pulse Ox 97 09/19/23 07:37 FiO2 Intake & Output 07/19/24 07/20/24 07/20/24 18:59 06:59 18:59 Intake Total 300 Balance 300 Weight 68.039 kg Intake: Oral 300 Other: Voiding Method Diaper Diaper Diaper Incontinent Incontinent Incontinent # Voids 1 1 1 - Labs CBC & Chem 7: 09/13/23 18:03 09/13/23 18:03 Assessment and Plan Time with Patient: Less than 30
--- NOTE | 2023-09-20 16:56 | P.PN ---
Subjective Progress Note Date: 09/20/23 History of present illness; patient 88-year-old lady with past medical history noted for dementia who presented to the ER for evaluation for worsening confusion. Patient lives at home with family, family have been having a hard time taking care of her recently because of her worsening dementia. Patient gets agitated easily at home. There is no complaint of fever or chills. No complaint of nausea, vomiting, abdominal pain. Family has not noticed any weakness of any extremity. Family at this time are interested in placement at a long-term care facility. Initial lab work done in the ER showed W6.9, hemoglobin 9, platelet count 250, sodium 140, potassium 4, BUN 19, creatinine 1.01, glucose 94, calcium 8.9, AST 27, ALT 15, UA negative for infection EKG done in the ER showed heart rate of81 , no ST segment elevation or depression seen, no T-wave inversions seen. Chest x-ray done in the ER showed no acute cardiopulmonary process Patient admitted to internal medicine service 09/15/2023 Patient is evaluated in follow up today on the medical floor. Patient remains confused and agitated however appears to be resting comfortably upon assessment. Recommending seroquel in place of IV ativan and haldol which have been discontinued. Psychiatry evaluation pending. Patient evaluated in follow up. Patient continues to be resting in bed. Was up last night agitated but has settled with seroquel. 09/17/2023 Patient evaluated today resting in bed. She is more awake and alert and less confused. She is alert x 1. Less agitated. 09/18/2023 Patient is seen and evaluated in follow-up this morning currently up with the nursing staff on the commode. Patient is extremely weak requiring walker with assistance. Patient is very unsteady and recommend PT/OT therapy daily. Patient is less agitated and is cooperative with staff. Continue Seroquel at night and currently awaiting an accepting ECF. [facility] has refused the patient and case management currently working on multiple referrals. Patient will also require insurance authorization. Patient is afebrile with no reported chest pain or shortness of breath. Psychiatry has evaluated the patient 09/19/2023 Patient is evaluated today in follow up on the medical floor. Patient is more awake alert able to feed herself. She does report sinus congestion and watery eyes. Otherwise no acute complaints. Currently pending authorization and accepting facility for discharge. 09/20/2023 Patient is evaluated today in follow up. Patient awake alert eating breakfast. Not reporting any sinus congestion today. Has no aucte complaints overnight. Hemodynamically stable. REVIEW OF SYSTEMS: Review of system cannot be obtained as patient is confused and has dementia PHYSICAL EXAMINATION: GENERAL: The patient is alert to self, history of dementia, thin build, elderly appearing HEENT: Pupils are round and equally reacting to light. EOMI. No scleral icterus. No conjunctival pallor. Normocephalic, atraumatic. No pharyngeal erythema. No thyromegaly. CARDIOVASCULAR: S1 and S2 present. No murmurs, rubs, or gallops. PULMONARY: Diminished breath sounds bilaterally otherwise chest is clear to auscultation, no wheezing or crackles. ABDOMEN: Soft, thin, scaphoid nontender, nondistended, normoactive bowel sounds. No palpable organomegaly. MUSCULOSKELETAL: No joint swelling or deformity. EXTREMITIES: No cyanosis, clubbing, or pedal edema. NEUROLOGICAL: Moving all extremities SKIN: No rashes. Assessment and plan Worsening agitation secondary to alzheimers dementia worsened by hospitalization. Dementia, alzheimers Allergic rhinitis Failure to thrive Inability to take care of herself History of stroke Hypertension Hyperlipidemia Gastroesophageal reflux disease DVT prophylaxis GI prophylaxis Full Code Plan Discontinue IV ativan IV haldol and IV dilaudid, continue with Seroquel and psychiatry evaluated the patient making adjustments Encourage frequent reorientation and family to visit Patient will be started on claritin and flonase. agitation may not completely resolve while hospitalized due to underlying dementia. Case management/social work following for ECF needs. Patient pending subacute rehab. Multiple referrals placed as [facility] has refused the patient. Case management is following and patient will also require insurance authorization on discharge Likely no plans for discharge prior to Thursday due to pending accepting facility and insurance authorization. The impression and plan of care has been dictated by Najma Ferreira Nurse Practitioner as directed. Dr. Fiona MD I have performed a history and physical examination and medical decision making of this patient, discussed the same with the dictator, and agree with the dictators assessment and plan as written, documented as a scribe. Based on total visit time, I have performed more than 50% of this visit. Objective - Vital Signs Vital signs: Vital Signs Temp 98 F 09/20/23 14:00 Pulse 74 09/20/23 14:00 Resp 17 09/20/23 14:00 BP 125/79 09/20/23 14:00 Pulse Ox 95 09/20/23 14:00 FiO2 Intake & Output 09/19/23 09/20/23 09/20/23 18:59 06:59 18:59 Other: Voiding Method Diaper Toilet Toilet Incontinent Diaper Diaper Incontinent # Voids 2 3 # Bowel Movements 2 1 - Labs CBC & Chem 7: 09/13/23 18:03 09/13/23 18:03 Assessment and Plan Time with Patient: Less than 30
[2023-09-21 01:40] VITALS: RESP 16
[2023-09-21 09:06] LABS: Calcium 8.9 mg/dL (8.7-10.3); Carbon Dioxide 22.8 mmol/L (21.6-31.8); Chloride 107 mmol/L (96-109); Glucose 90 mg/dL (70-110); Potassium 3.6 mmol/L (3.5-5.5); Sodium 142 mmol/L (135-145)
[2023-09-21 09:18] LABS: Basophils % (A) 1.3 %; Eosinophils # (A) 0.27 X 10*3/uL (0.04-0.35); Eosinophils % (A) 3.5 %; HCT 38.6 % (37.2-46.3); HGB 12.6 g/dL (12.0-15.0); Lymphocytes # (A) 2.57 X 10*3/uL (0.90-5.00); Lymphocytes % (A) 33.3 %; MCH 28.4 pg (27.0-32.0); MCHC 32.6 g/dL (32.0-37.0); MCV 87.1 FL (80.0-97.0); Mean Platelet Volume 12.7 FL (9.5-12.2); Monocytes # (A) 0.92 X 10*3/uL (0.20-1.00); Monocytes % (A) 11.9 %; NRBC Per 100 WBC 0 X 10*3/uL (0.00-0.01); Neutrophils # (A) 3.83 X 10*3/uL (1.80-7.70); Neutrophils % (A) 49.7 %; Platelet Count 243 X 10*3/uL (140-440); RBC 4.43 X 10*6/uL (4.10-5.20); RDW 14.6 % (11.5-14.5); WBC 7.71 X 10*3/uL (4.50-10.00)
--- NOTE | 2023-09-21 10:30 | P.DS ---
Providers Date of admission: 09/13/23 19:26 Attending physician: Hermelinda Clemens Consults: 09/14/23 12:03 Consult Physician Routine Consulting Provider: Micheal Esparza Consult Reason/Comments: agitation,worseing dementia Do you want consulting provider notified?: Yes [facility] care [facility] Course: Final Diagnosis Worsening agitation secondary to alzheimers dementia worsened by hosp italization. Dementia, alzheimers Allergic rhinitis Failure to thrive Inability to take care of herself History of stroke Hypertension Hyperlipidemia Gastroesophageal reflux disease Discharge Disposition Patient stable for discharge to subacute rehab. Patient will continue on Seroquel at at bedtime. Patient will either discharge to [facility] and [facility] in [place] and patient's daughter Rivka is working on picking a facility and once that is done patient will be discharged today. Hospital Course This is an 88-year-old lady with past medical history noted for dementia who pr esented to the ER for evaluation for worsening confusion. Patient lives at home with family, family have been having a hard time taking care of her recently because of her worsening dementia. Patient gets agitated easily at home. There is no complaint of fever or chills. No complaint of nausea, vomiting, abdominal pain. Family has not noticed any weakness of any extremity. Family at this [facility] are interested in placement at a long-term care facility. Initial lab work done in the ER showed W6.9, hemoglobin 9, platelet count 250, sodium 140, potassium 4, BUN 19, creatinine 1.01, glucose 94, calcium 8.9, AST 27, ALT 15, UA negative for infection. EKG done in the ER showed heart rate of81 , no ST segment elevation or depression seen, no T-wave inversions seen. Chest x-ray done in the ER showed no acute cardiopulmonary process. Patient admitted to internal medicine service. Due to the advanced dementia and being in the hospital patient had worsening agitation and was given IV Ativan and IV Haldol however this may have worsened her episodes of confusion and agitation his medications were discontinued. Patient was then started on oral Seroquel at bedtime and daily as needed and her mentation over the last 3 days has significantly improved and she is now awake alert and oriented x 1-2 she is cooperative has been up out of bed and has been feeding herself and assisting in ADLs. Patient was evaluated by physical therapy and Occupational Therapy they did recommend a course of subacute rehab for this patient family is agreeing at this time. Patient is had no acute complaints her blood work has been essentially unremarkable. Hemodynamically she is stable. She has been accepted for rehab and will be discharged today. Please see medication reconciliation for a list of current medications. Thank you for allowing us to participate in the care of this patient. The impression and plan of care has been dictated by Najma Ferreira, Nurse Practitioner as directed. Dr. Fiona MD I have performed a history and physical examination and medical decision making of this patient, discussed the same with the dictator, and agree with the dictators assessment and plan as written, documented as a scribe. Based on total visit time, I have performed more than 50% of this visit. Patient Condition at Discharge: Fair Plan - Discharge Summary Discharge Rx Participant: No New Discharge Prescriptions: New QUEtiapine [SEROquel] 25 mg PO HS tab Heparin Sodium,Porcine (1 ml) [Heparin Sodium] 5,000 unit SQ Q12HR each Continue Mirtazapine [Remeron] 15 mg PO HS Donepezil [Aricept] 10 mg PO HS Melatonin 10 mg PO HS Discharge Medication List Mirtazapine [Remeron] 15 mg PO HS 07/02/17 [History] Donepezil [Aricept] 10 mg PO HS 09/30/17 [History] Melatonin 10 mg PO HS 09/13/23 [History] Heparin Sodium,Porcine (1 ml) [Heparin Sodium] 5,000 unit SQ Q12HR each 09/21/23 [Rx] QUEtiapine [SEROquel] 25 mg PO HS tab 09/21/23 [Rx] Follow up Appointment(s)/Referral(s): Micheal Phillips DO [Primary Care Provider] - 1-2 days Discharge Disposition: TRANSFER TO SNF/ECF
[2023-09-21 13:06] VITALS: BP 143/69; PULSE 65; TEMP 97.9
== END 2023-09-21 15:47 | DRG 57 ==
LOC: EC 17:31 → 5NMEDONC 19:26
PROVIDERS: ADMIT Hospitalist; ATTEND Hospitalist
DX: G30.1 Alzheimer's disease with late onset (principal); F02.811 Dementia in other diseases classified elsewhere, unspecified severity, with agitation; F02.C11 Dementia in other diseases classified elsewhere, severe, with agitation; R26.2 Difficulty in walking, not elsewhere classified; J30.9 Allergic rhinitis, unspecified; I10 Essential (primary) hypertension; K44.9 Diaphragmatic hernia without obstruction or gangrene; R53.81 Other malaise; E78.5 Hyperlipidemia, unspecified; K21.9 Gastro-esophageal reflux disease without esophagitis; R62.7 Adult failure to thrive; Z86.73 Personal history of transient ischemic attack (TIA), and cerebral infarction without residual deficits; Z90.81 Acquired absence of spleen; Z71.3 Dietary counseling and surveillance; Z74.2 Need for assistance at home and no other household member able to render care; Z86.79 Personal history of other diseases of the circulatory system
CPT/HCPCS: 36415; 71045; 80048; 80053; 81001; 83605; 83735; 84100; 84443; 84484; 85025; 85610; 85730; 93005; 94760; 96361; 96374; 96375; 96376; 99285

== ENCOUNTER 2024-06-23 16:20 | Inpatient (IN) | payer MEDICARE, OTHER ==
[2024-06-23 17:54] LABS: Basophils # (A) 0.09 10*3/uL (0.00-0.10); Basophils % (A) 1.1 %; Eosinophils # (A) 0.16 10*3/uL (0.04-0.35); Eosinophils % (A) 1.9 %; HCT 33.2 % (37.2-46.3); HGB 10.5 g/dL (12.0-15.0); Lymphocytes # (A) 1.72 10*3/uL (0.90-5.00); Lymphocytes % (A) 20.7 %; MCH 24.6 pg (27.0-32.0); MCHC 31.6 g/dL (32.0-37.0); MCV 77.9 fL (80.0-97.0); Mean Platelet Volume 11.6 fL (9.5-12.2); Monocytes % (A) 9.7 %; Neutrophils # (A) 5.49 10*3/uL (1.80-7.70); Neutrophils % (A) 66.2 %; Platelet Count 380 10*3/uL (140-440); RBC 4.26 10*6/uL (4.10-5.20); RDW 18.7 % (11.5-14.5); WBC 8.29 10*3/uL (4.50-10.00)
[2024-06-23 18:01] LABS: ALT 9 U/L (4-34); AST 21 U/L (14-36); African American GFR (CKD) 70 (>60 ml/min/1.73 sqM); Albumin 3.1 g/dL (3.5-5.0); Alkaline Phosphatase 100 U/L (38-126); Anion Gap 7 mmol/L; Blood Urea Nitrogen 17 mg/dL (7-17); Calcium 9.3 mg/dL (8.4-10.2); Carbon Dioxide 25 mmol/L (22-30); Chloride 107 mmol/L (98-107); Glucose 95 mg/dL (74-99); Non-African American GFR(CKD) 61 (>60 ml/min/1.73 sqM); Sodium 139 mmol/L (137-145); Total Bilirubin 0.6 mg/dL (0.2-1.3); Total Protein 5.9 g/dL (6.3-8.2)
[2024-06-23 18:40] LABS: Appearance,Urine Clear (Clear); Bilirubin,Urine Negative (Negative); Blood,Urine Negative (Negative); Color,Urine Light Yellow; Glucose,Urine (UA) Negative (Negative); Ketones,Urine Negative (Negative); Leukocyte Esterase,Urine Negative (Negative); Nitrite,Urine Negative (Negative); Protein,Urine Negative (Negative); Urobilinogen,Urine <2.0 mg/dL (<2.0)
--- NOTE | 2024-06-23 18:45 | ED ---
General Adult HPI - General Chief complaint: Altered Mental Status Stated complaint: Poss.UTI/ELADIA in WR Time Seen by Provider: 06/23/24 16:22 Source: EMS, RN notes reviewed, old records reviewed Mode of arrival: EMS Limitations: altered mental status - History of Present Illness Initial comments: 88-year-old female presenting for evaluation of worsening confusion, poor appetite. Patient family was concerned that she may be developing urinary tract infection. Patient has dementia which has been progressively worsening over years. The patient has not had much to eat or drink over the past 3 to 4 days and is currently refusing food. No reported fever. No vomiting. No reported pain complaints. Patient unable to contribute to the history. - Related Data Home Medications Medication Instructions Recorded Confirmed Mirtazapine [Remeron] 15 mg PO HS 07/02/17 09/13/23 Donepezil [Aricept] 10 mg PO HS 09/30/17 09/13/23 Melatonin 10 mg PO HS 09/13/23 09/13/23 Previous Rx's Medication Instructions Recorded Heparin Sodium,Porcine (1 ml) 5,000 unit SQ Q12HR each 09/21/23 [Heparin Sodium] QUEtiapine [SEROquel] 25 mg PO HS tab 09/21/23 Allergies Allergy/AdvReac Type Severity Reaction Status Date / Time No Known Allergies Allergy Verified 06/23/24 16:28 Review of Systems ROS Statement: Those systems with pertinent positive or pertinent negative responses have been documented in the HPI. ROS Other: All systems not noted in ROS Statement are negative. Past Medical History Past Medical History: CVA/TIA, Dementia, GERD/Reflux, Hyperlipidemia, Hypertension, Memory Impairment Additional Past Medical History / Comment(s): Alzheimer's, large hiatal hernia, splenic aortic aneurysm History of Any Multi-Drug Resistant Organisms: None Reported Past Surgical History: Hernia Repair, Orthopedic Surgery Additional Past Surgical History / Comment(s): ganglion cysts removed, fx. right wrist repair, splenectomy Past Anesthesia/Blood Transfusion Reactions: Previous Problems w/ Anesthesia Additional Past Anesthesia/Blood Transfusion Reaction / Comment(s): difficulty waking up Past Psychological History: Anxiety Smoking Status: Never smoker Past Alcohol Use History: None Reported Past Drug Use History: None Reported - Past Family History Mother Family Medical History: No Reported History General Exam Limitations: altered mental status General appearance: alert, in no apparent distress Head exam: Present: atraumatic, normocephalic Eye exam: Present: normal appearance, PERRL ENT exam: Present: mucous membranes dry Respiratory exam: Present: normal lung sounds bilaterally. Absent: respiratory distress Cardiovascular Exam: Present: regular rate, normal rhythm Neurological exam: Present: alert. Absent: oriented X3 Skin exam: Present: warm, dry, intact Course Vital Signs 06/23/24 16:23 Temperature 98.7 F Pulse Rate 77 Respiratory 18 Rate Blood Pressure 133/75 O2 Sat by Pulse 97 Oximetry Medical Decision Making - Medical Decision Making Was pt. sent in by a medical professional or institution ([facility], MUSCULOSKELETAL PHYSIOTHERAPIST, urgent care, hospital, or detention...) When possible be specific @ -No Did you speak to anyone other than the patient for history (EMS, parent, family, police, friend...)? What history was obtained from this source @Yes, patient's daughter able to give detailed history. Did you review nursing and triage notes (agree or disagree)? Why? @ -I reviewed and agree with nursing and triage notes Were old charts reviewed (outside hosp., previous admission, EMS record, old EKG, old radiological studies, urgent care reports/EKG's, detention records)? Report findings @ -No old charts were reviewed Differential Altered Mental Status: Hypoglycemia, DKA, hypercapnia, ETOH, overdose, CO poisoning, trauma, myxedema coma, HTN encephalopathy, infection, encephalitis, psychosis, intercranial hemorrhage, hepatic encephalopathy, meningitis, CVA, this is not meant to be an all-inclusive list EKG interpreted by me (3pts min.). @ -Sinus rhythm rate 73, VT interval 172, QRS duration 134, QTc 445 occasional PVC X-rays interpreted by me (1pt min.). @ -None done CT interpreted by me (1pt min.). @ -None done U/S interpreted by me (1pt. min.). @ -None done What testing was considered but not performed or refused? (CT, X-rays, U/S, labs)? Why? @ -None What meds were considered but not given or refused? Why? @ -None Did you discuss the management of the patient with other professionals (professionals i.e. [facility], MUSCULOSKELETAL PHYSIOTHERAPIST, lab, RT, psych nurse, social science teacher, prototype machine operator, teacher, assurance officer, lining caser)? Give summary @ -No Was smoking cessation discussed for >3mins.? @ -No Was critical care preformed (if so, how long)? @ -No Were there social determinants of health that impacted care today? How? (Homelessness, low income, unemployed, alcoholism, drug addiction, transportation, low edu. Level, literacy, decrease access to med. care, prison, rehab)? @ -No Was there de-escalation of care discussed even if they declined (Discuss DNR or withdrawal of care, Hospice)? DNR status @ -No What co-morbidities impacted this encounter? (DM, HTN, Smoking, COPD, CAD, Cancer, CVA, ARF, Chemo, Hep., AIDS, mental health diagnosis, sleep apnea, morbid obesity)? @Dementia Was patient admitted / discharged? Hospital course, mention meds given and route, prescriptions, significant lab abnormalities, going to OR and other pertinent info. @ 88-year-old female presenting with worsening confusion, no appetite. Patient's family reports that she is refusing to eat or drink. They would like to progress to comfort care and possible hospice. They do not want any aggressive measures. They were concerned that there may be a urinary tract infection which was acutely worsening her confusion this has been ruled out by urinalysis. Basic laboratory testing is unremarkable. Patient admitted to internal medicine with consult to hospice for evaluation. Undiagnosed new problem with uncertain prognosis? @ -No Drug Therapy requiring intensive monitoring for toxicity (Heparin, Nitro, Insulin, Cardizem)? @ -No Were any procedures done? @ -No Diagnosis/symptom? @Dementia, failure to thrive Acute, or Chronic, or Acute on Chronic? @ -[Acute on chronic Uncomplicated (without systemic symptoms) or Complicated (systemic symptoms)? @ -Default Side effects of treatment? @ -No Exacerbation, Progression, or Severe Exacerbation? @ -No Poses a threat to life or bodily function? How? (Chest pain, [place], [facility], pneumonia, PE, COPD, DKA, ARF, appy, cholecystitis, CVA, Diverticulitis, Homicidal, Suicidal, threat to staff... and all critical care pts) @Yes, likely end of life - Lab Data Result diagrams: 06/23/24 17:38 06/23/24 17:38 Lab Results 04/24/25 04/24/25 04/24/25 Range/Units 17:38 17:38 18:28 WBC 8.29 (4.50-10.00) 10*3/uL RBC 4.26 (4.10-5.20) 10*6/uL Hgb 10.5 L (12.0-15.0) g/dL Hct 33.2 L (37.2-46.3) % MCV 77.9 L (80.0-97.0) fL MCH 24.6 L (27.0-32.0) pg MCHC 31.6 L (32.0-37.0) g/dL Plt Count 380 (140-440) 10*3/uL MPV 11.6 (9.5-12.2) fL Immature Gran % (Auto) 0.4 % Neutrophils % 66.2 % Lymphocytes % 20.7 % Monocytes % 9.7 % Eosinophils % 1.9 % Basophils % 1.1 % Immature Gran # 0.03 (0.00-0.04) 10*3/uL Neutrophils # 5.49 (1.80-7.70) 10*3/uL Lymphocytes # 1.72 (0.90-5.00) 10*3/uL Monocytes # 0.80 (0.20-1.00) 10*3/uL Eosinophils # 0.16 (0.04-0.35) 10*3/uL Basophils # 0.09 (0.00-0.10) 10*3/uL Sodium 139 (137-145) mmol/L Potassium 4.0 (3.5-5.1) mmol/L Chloride 107 (98-107) mmol/L Carbon Dioxide 25 (22-30) mmol/L Anion Gap 7 mmol/L BUN 17 (7-17) mg/dL Creatinine 0.87 (0.52-1.04) mg/dL Est GFR (CKD-EPI)AfAm 70 (>60 ml/min/1.73 sqM) Est GFR (CKD-EPI)NonAf 61 (>60 ml/min/1.73 sqM) Glucose 95 (74-99) mg/dL Calcium 9.3 (8.4-10.2) mg/dL Total Bilirubin 0.6 (0.2-1.3) mg/dL AST 21 (14-36) U/L ALT 9 (4-34) U/L Alkaline Phosphatase 100 (38-126) U/L Total Protein 5.9 L (6.3-8.2) g/dL Albumin 3.1 L (3.5-5.0) g/dL Urine Color Light Yellow Urine Appearance Clear (Clear) Urine pH 7.0 (5.0-8.0) Ur Specific [place] 1.020 (1.001-1.035) Urine Protein Negative (Negative) Urine Glucose (UA) Negative (Negative) Urine Ketones Negative (Negative) Urine Blood Negative (Negative) Urine Nitrite Negative (Negative) Urine Bilirubin Negative (Negative) Urine Urobilinogen <2.0 (<2.0) mg/dL Ur Leukocyte Esterase Negative (Negative) Disposition Clinical Impression: Dementia, Debility Disposition: ADMITTED IP TO THIS [facility] Condition: Stable Is patient prescribed a controlled substance at d/c from ED?: No Referrals: Micheal Phillips DO [Primary Care Provider] - 1-2 days Time of Disposition: 19:13
[2024-06-23] MEDS ORDERED: ACETAMINOPHEN TAB 325 MG TAB PO PRN (19:07)
[2024-06-23] MEDS: MORPHINE SULFATE 2 MG/ML SYRINGE IVP PRN (21:40)
[2024-06-24 14:14] VITALS: BP 102/65; PULSE 80; RESP 17; TEMP 100.2
== END 2024-06-24 15:18 | disposition hospice, inpatient (51) | DRG 57 ==
LOC: EC 16:20 → 4SSUR 19:09
PROVIDERS: ADMIT Hospitalist; ATTEND Hospitalist
DX: G30.9 Alzheimer's disease, unspecified (principal); E78.5 Hyperlipidemia, unspecified; F02.80 Dementia in other diseases classified elsewhere, unspecified severity, without behavioral disturbance, psychotic disturbance, mood disturbance, and anxiety; I10 Essential (primary) hypertension; Z90.81 Acquired absence of spleen; Z87.19 Personal history of other diseases of the digestive system
CPT/HCPCS: 36415; 51701; 80053; 81003; 85025; 93005; 96374; 99285